=== PATIENT | female | born 1950 | race Caucasian/White ===

== ENCOUNTER → 2017-02-02 | Outpatient (CLI) | payer OTHER ==
[~2017-02-02] MED LIST: CHOL100010 PO; CITA40TA4 PO; CLX20 PO; COEN1CAP28 PO; LEVO75TA5 PO; LOSA100T2 PO; METO50TA7 PO; MULT-190 PO; MULTTAB PO; PANT40TA PO; SUMA100T16 PO; TOPI50TA24 PO; ZNF/4 PO
[2017-02-02 12:47] LABS: URINE APPEARANCE CLEAR (CLEAR); URINE BILIRUBIN NEG (NEG); URINE COLOR YELLOW; URINE EPITHELIAL CELL AUTO 20-30 /lpf (0-5); URINE NITRITE NEG (NEG); URINE SPECIFIC GRAVITY 1.032 (1.000-1.030); UROBILINOGEN NEG (NEG)
[2017-02-02 12:47] LABS: BASO % 0.5 %; BASO ABS # 0.03 K/uL (0-0.2); COMPLETE YES; HEMATOCRIT 39.2 % (37-47); IG% 0.2 %; LYMPH ABS # 1.19 K/uL (1.2-3.4); MEAN CELL VOLUME 89.7 fL (80-100); MEAN CORPUSCULAR HEMOGLOBIN 28.6 pg (25-34); MEAN CORPUSCULAR HGB CONC 31.9 g/dl (32-36); MEAN PLATELET VOLUME 9.9 fL (7.4-10.4); NEUT % 63.3 %; PLATELET COUNT 333 K/uL (130-400); RED BLOOD COUNT 4.37 M/uL (4.2-5.4); WHITE BLOOD COUNT 5.66 K/uL (4.8-10.8)
[2017-02-02 12:52] LABS: MANUAL MICROSCOPIC REQUIRED? NO; REVIEW REQ? NO
[2017-02-02 13:58] LABS: ESTIMATED AVERAGE GLUCOSE 131 mg/dl; HA1C FLAG Normal (Normal)
[2017-02-02 14:40] LABS: BLOOD UREA NITROGEN 22 mg/dl (7-18); BUN/CREATININE RATIO 22.6 (10-20); CALCIUM 9.2 mg/dl (8.5-10.1); CARBON DIOXIDE 27 mmol/L (21-32); CHLORIDE 106 mmol/L (98-107); CREATININE 0.99 mg/dl (0.60-1.20); GLUCOSE 102 mg/dl (70-99); POTASSIUM 3.8 mmol/L (3.5-5.1); SODIUM 141 mmol/L (136-145)
[2017-02-02 14:51] LABS: CHOLESTEROL 252 mg/dl (0-200); CHOLESTEROL/HDL RATIO 4.3; HDL CHOLESTEROL 58 mg/dl; LDL CHOLESTEROL CALCULATED 143 mg/dl; TRIGLYCERIDES 255 mg/dl (0-150); VERY LOW DENSITY LIPOPROT CALC 51 mg/dl
--- NOTE | 2017-02-09 12:43 | CODING QUERY MEDICAL NECESSITY ---
SUPPORTING DIAGNOSIS NEEDED A supporting diagnosis is required for the test/procedure performed on this patient in order for us to be reimbursed by the patient's insurance. Please provide a supporting diagnosis for the following test/procedure listed below next to the test name along with your signature. *If there is no additional diagnosis for this patient that would support the following test/procedure please document that below next to the test/procedure. Test(s)/Procedure(s) that require a supporting diagnosis: DOS 02/02 * Hba1c DIAGNOSIS: Provider Signature: Date: Thank you Lesli Hope Health Information Management Once completed, please kindly fax back to [phone] For questions please call [phone]
== END | disposition home or self-care (01) ==
LOC: C.LABPBG 07:27
PROVIDERS: ATTEND Internal Medicine
DX: E78.00 Pure hypercholesterolemia, unspecified (principal); R73.9 Hyperglycemia, unspecified

== ENCOUNTER → 2017-03-01 | Outpatient (CLI) | payer OTHER ==
[2017-03-01 17:46] LABS: BLOOD UREA NITROGEN 23 mg/dl (7-18); BUN/CREATININE RATIO 24.5 (10-20); CALCIUM 9.7 mg/dl (8.5-10.1); CARBON DIOXIDE 30 mmol/L (21-32); CHLORIDE 105 mmol/L (98-107); CREATININE 0.95 mg/dl (0.60-1.20); GLUCOSE 118 mg/dl (70-99); SODIUM 141 mmol/L (136-145)
== END | disposition home or self-care (01) ==
LOC: C.LAB1850 15:53
PROVIDERS: ATTEND Internal Medicine
DX: E78.00 Pure hypercholesterolemia, unspecified (principal)

== ENCOUNTER → 2017-04-22 | Outpatient (CLI) | payer OTHER ==
[~2017-04-22] MED LIST changes: -CITA40TA4 PO
== END | disposition home or self-care (01) ==
LOC: C.LAB1850 11:28
PROVIDERS: ATTEND Internal Medicine
DX: M70.60 Trochanteric bursitis, unspecified hip (principal)

== ENCOUNTER → 2017-08-25 | Outpatient (CLI) | payer OTHER ==
[~2017-08-25] MED LIST changes: +CITA40TA4 PO; -TOPI50TA24 PO
--- NOTE | 2017-08-26 07:51 | MAMMOGRAPHY REPORT ---
BILATERAL DIGITAL SCREENING MAMMOGRAM TOMOSYNTHESIS WITH CAD: 08/25/2017 CLINICAL HISTORY: Routine screening. Patient has no complaints. TECHNIQUE: Breast tomosynthesis in addition to standard 2D mammography was performed. Current study was also evaluated with a Computer Aided Detection (CAD) system. COMPARISON: Comparison is made to exams dated: 08/24/2016 mammogram, 08/21/2015 mammogram, 08/20/2014 m ammogram, 08/17/2013 mammogram, 12/09/2010 mammogram - [facility], and 05/30/2009. BREAST COMPOSITION: The tissue of both breasts is heterogeneously dense, which may obscure small mas ses. FINDINGS: No suspicious masses, calcifications, or areas of architectural distortion are noted in ei ther breast. There has been no significant interval change compared to prior exams. Scattered bilater al benign-appearing calcifications are not significantly changed. IMPRESSION: ACR BI-RADS CATEGORY 2: BENIGN There is no mammographic evidence of malignancy. A 1 year screening mammogram is recommended. The pa tient will receive written notification of the results. Approximately 10% of breast cancers are not detected with mammography. A negative mammographic report should not delay biopsy if a clinically suggestive mass is present. Mary Tyler M.D. /:08/25/2017 09:05:18 Image Assembler: Nina BUENROSTRO(Eneida)(M), [facility] letter sent: Normal 1/2 BI-RADS Code: ACR BI-RADS Category 2: Benign
== END | disposition home or self-care (01) ==
LOC: C.MAMM 08:40
PROVIDERS: ATTEND Internal Medicine
DX: Z12.31 Encounter for screening mammogram for malignant neoplasm of breast (principal)

== ENCOUNTER → 2017-11-09 | Outpatient (CLI) | payer OTHER ==
[~2017-11-09] MED LIST changes: -CLX20 PO
[2017-11-09 18:12] LABS: BASO % 0.4 %; BASO ABS # 0.02 K/uL (0-0.2); EOS % 2.1 %; EOS ABS # 0.12 K/uL (0-0.5); HEMATOCRIT 40.9 % (37-47); IG# 0.01 K/uL (0.00-0.02); LYMPH % 19.8 %; LYMPH ABS # 1.12 K/uL (1.2-3.4); MEAN CELL VOLUME 87.8 fL (80-100); MEAN CORPUSCULAR HEMOGLOBIN 27.9 pg (25-34); MEAN CORPUSCULAR HGB CONC 31.8 g/dl (32-36); MEAN PLATELET VOLUME 10.3 fL (7.4-10.4); MONO % 9.7 %; MONO ABS # 0.55 K/uL (0.11-0.59); NEUT % 67.8 %; NEUT ABS # 3.84 K/uL (1.4-6.5); PLATELET COUNT 335 K/uL (130-400); RED CELL DISTRIBUTION WIDTH CV 13.9 % (11.5-14.5); RED CELL DISTRIBUTION WIDTH SD 44.3 fL (36.4-46.3); WHITE BLOOD COUNT 5.66 K/uL (4.8-10.8)
[2017-11-09 18:35] LABS: ALT/SGPT 20 U/L (12-78); AST/SGOT 14 U/L (15-37); BLOOD UREA NITROGEN 32 mg/dl (7-18); CALCIUM 9.9 mg/dl (8.5-10.1); CARBON DIOXIDE 30 mmol/L (21-32); CHOLESTEROL 287 mg/dl (0-200); CREATININE 0.88 mg/dl (0.60-1.20); GLUCOSE 125 mg/dl (70-99); POTASSIUM 3.7 mmol/L (3.5-5.1); SODIUM 138 mmol/L (136-145)
[2017-11-09 18:45] LABS: LDL CHOLESTEROL CALCULATED 203 mg/dl
[2017-11-10 06:55] LABS: HEMOGLOBIN A1C 6.2 % (4.5-5.6)
== END | disposition home or self-care (01) ==
LOC: C.LABPBG 12:30
PROVIDERS: ATTEND Internal Medicine
DX: E78.00 Pure hypercholesterolemia, unspecified (principal)

== ENCOUNTER 2019-07-07 08:42 | Inpatient (IN) ==
--- NOTE | 2019-07-05 12:05 | Anesthesiology Consultation ---
Date of Service July 05, 2019 Assessment & Plan Chart Review Chart Review: Acceptable Risk for Surgery and Patient NOT seen in Pre Admission Testing Consults Requested none History Surgery Operation Date: 07/07/19 12:45 Proposed Procedures p L3-L4 Revision Decompression; L3-L4 Transforaminal Lumbar Interbody Fusion; Spinal Cord Monitoring - Clarke Gould DO Height/Weight Height: 5 ft 2 in Weight: 72.575 kg Allergies Allergy/AdvReac Type Severity Reaction Status Date / Time Penicillins Allergy Severe throat Verified 07/05/19 10:27 pruritis carbamazepine Allergy Intermediate per PCP Verified 07/05/19 10:28 note chlorhexidine Allergy Intermediate ITCHING, Verified 07/05/19 10:27 TINGLING latex Allergy Intermediate ITCHING Verified 07/05/19 10:27 ERYTHEMA soap Allergy Intermediate ITCHING Verified 07/05/19 10:27 "DIAL SOAP" soy Allergy Intermediate INDIGESTION Verified 07/05/19 10:27 Sulfa (Sulfonamide Allergy Intermediate ITCHING OF Verified 07/05/19 10:28 Antibiotics) THROAT Iodinated Contrast Media Allergy Mild headache, Verified 07/05/19 10:28 n/v, hives, rash iodine Allergy Mild headache, Verified 07/05/19 10:28 n/v, hives, rash with IV dye chlorpromazine Allergy Unknown Unknown Verified 07/05/19 10:27 fluoxetine Allergy Unknown per PCP Verified 07/05/19 10:27 note propoxyphene Allergy Unknown per PCP Verified 07/05/19 10:27 record aspirin AdvReac Intermediate 'hypersensitivity' Verified 07/05/19 10:28 per pt BURNING OF STOMACH gabapentin AdvReac Intermediate ATAXIA Verified 07/05/19 10:27 ibuprofen AdvReac Intermediate STOMACH Verified 07/05/19 10:27 BURNING ketorolac AdvReac Intermediate BLEEDING Verified 07/05/19 10:27 codeine AdvReac Mild n/v, Verified 07/05/19 10:28 headache doxycycline AdvReac Mild NAUSEA Verified 07/05/19 10:28 Egg Derived AdvReac Mild NAUSEA Verified 07/05/19 10:28 fentanyl AdvReac Mild NAUSEA Verified 07/05/19 10:28 FROM PATCH morphine AdvReac Mild n/v,headach Verified 07/05/19 10:28 e thiopental AdvReac Mild n/v Verified 07/05/19 10:28 (severe), headache Medications Home Medications Medication Instructions Recorded Confirmed Last Taken cholecalciferol (vitamin D3) 5,000 5,000 units PO DAILY 09/19/18 07/05/19 05/21/19 09:00 unit capsule coQ10 (ubiquinol) 200 mg PO QAM 05/16/19 07/05/19 05/21/19 09:00 metoprolol succinate 100 mg PO HS 05/16/19 07/05/19 05/21/19 22:00 omeprazole 20 mg capsule,delayed 20 mg PO BID #90 cap 05/18/19 07/05/19 05/21/19 04:00 release acetaminophen ER 650 mg 650 mg PO UD PRN tab 05/22/19 07/05/19 Unknown tablet,extended release hydrocodone-acetaminophen 1 tab PO Q8H PRN #20 tab 05/22/19 07/05/19 Unknown multivitamin 1 tab PO DAILY 05/22/19 07/05/19 Unknown ondansetron 4 mg disintegrating 4 mg PO Q6H PRN #30 tab 05/22/19 07/05/19 Unknown tablet sumatriptan 100 mg tablet 100 mg PO .COMPLEX PRN tab 05/22/19 07/05/19 Unknown tizanidine 4 mg tablet See Rx Instructions PO DAILY tab 05/22/19 07/05/19 Unknown vitamins A,C,H-[id number]-fbenwp 1 cap PO DAILY 05/22/19 07/05/19 Unknown tramadol 50 mg tablet 50 mg PO Q6H PRN #120 tab 05/24/19 07/05/19 Unknown citalopram 40 mg tablet 40 mg PO HS #90 tab 06/12/19 07/05/19 Unknown levothyroxine 75 mcg tablet 75 mcg PO QAM #90 tab 06/12/19 07/05/19 Unknown losartan-hydrochlorothiazide 1 tab PO QAM 07/05/19 07/05/19 Unknown Past Medical History Medical History Hyperlipidemia HTN (hypertension) Mitral valve prolapse SVT (supraventricular tachycardia) (Resolved) Anxiety Cervical spondylolysis Degenerative disc disease Depression Fibromyalgia GERD (gastroesophageal reflux disease) Gastritis Hypothyroidism Legally blind BEST'S DISEASE Migraine Osteoarthritis Peripheral neuropathy Prediabetes Temporomandibular joint disorder Vitreous detachment of right eye Past Family History Family History Father Family history of diabetes mellitus Brother Family history of diabetes mellitus Uncle Family history of esophageal cancer Past Surgical History Surgical History H/O tubal ligation (Acute) Family history of reaction to anesthesia BROTHER-EXTREME DIFFICULTY WAKING UP H/O hysterectomy with oophorectomy History of abdominoplasty History of bladder surgery History of cardiac cath OVER 10 YEARS AGO AT [place] History of carpal tunnel release RT/LEFT History of cataract surgery RT/LEFT History of section History of cholecystectomy History of colonoscopy History of dilatation and curettage History of esophagogastroduodenoscopy (EGD) History of laminectomy LUMBAR History of surgery on arm RT ULNAR NERVE RELEASE History of tonsillectomy and adenoidectomy History of tooth extraction History of total knee replacement RT/LEFT Nausea and vomiting after administration of anesthetic agent Social History Smoking Status: Never smoker Do You Dip or Chew Tobacco: No Hx Alcohol Use: Yes Alcohol type: wine alcohol intake frequency: holidays/special occasions only Hx Substance Use: No substance use type: does not use Testing Laboratory Results Laboratory Tests 04/18/19 04/18/19 05/16/19 09:07 09:07 12:07 WBC 9.37 Hgb 11.6 L Hct 35.7 L Plt Count 308 Sodium 139 Potassium 4.5 Chloride 104 Carbon Dioxide 29 BUN 30 H Creatinine 1.17 Glucose 96 Hemoglobin A1c 6.9 H TSH 2.280 Electrocardiogram Date: 05/16/19 Findings: + NSR @ (68) When compared with ECG of 04/22/16, Ventricular rate has decreased by 37bpm Nonspecific T wave abnormality no longer evident in inferior leads Chest X-Ray Date: 05/16/19 Findings: + NAD FINDINGS: PA and lateral chest radiographs are compared to study dated 04/05/2015. The cardiomediastinal silhouette is unremarkable. Foci of linear atelectasis are noted in the left lower lung. The lungs and pleural spaces are otherwise clear. There is no pneumothorax. The skeletal structures are osteopenic. The bony thorax appears intact. Cholecystectomy clips are seen in the right upper quadrant. IMPRESSION: No active disease in the chest. Stress Test Date: 03/25/16 Type: DSE Findings: + WNL Resting EF: 55-60% Resting RWMA: + none Valvular Disease: no significant valvular disease Normal dobutamine stress echocardiogram No ECG or echocardiographic changes concerning for ischemia No chest discomfort experienced Normal segmental wall motion Mild aortic regurgitation No other significant valvular abnormalities seen Cervical Spine Date: 01/04/19 Cervical spine: Marrow signal intensity is heterogeneous. Vertebral body height and alignment are maintained throughout the cervical spine. The atlantodens articulation appears maintained noting productive degenerative change. The spinous processes appear intact. No destructive bony lesion is seen. Small anterior osteophytes are seen throughout. Intervertebral discs: Degenerative disc desiccation is seen throughout the cervical spine. There is moderate to advanced loss of height at levels between C3-C4 and C7-T1. Spinal cord: The cervical spinal cord is normal in morphology and signal intensity. C2-C3: A small posterior disc-osteophyte complex minimally effaces the ventral subarachnoid space. Predominantly facet arthropathy is of no consequence. C3-C4: A posterior disc-osteophyte complex minimally effaces the ventral cord. Uncovertebral and facet arthropathy cause mild to moderate left neural foraminal stenosis. C4-C5: A posterior disc-osteophyte complex abuts the ventral cord. Uncovertebral and facet arthropathy causes mild to moderate left neural frontal stenosis. C5-C6: A posterior disc-osteophyte complex eccentric to the right abuts the ventral cord. Uncovertebral and facet arthropathy causes severe right and minimal left neural from stenosis. C6-C7: A posterior disc-osteophyte complex effaces the ventral subarachnoid space. Predominantly uncovertebral arthropathy causes moderate right neural foraminal stenosis. C7-T1: A posterior disc-osteophyte complex abuts the ventral cord. Predominantly uncovertebral arthropathy causes mild bilateral neural foraminal stenosis. Brain parenchyma: The partially imaged brain parenchyma at the skull base is normal in appearance. Partially empty sella is incidentally noted. Soft tissues: The prevertebral and paraspinous soft tissues are normal in appearance. IMPRESSION: 1. Multilevel cervical spondylosis as detailed above. See discussion for detailed [id number] analysis. 2. The cervical spinal cord is normal in morphology and signal intensity. 3. Marrow signal intensity is heterogeneous. No destructive bony lesion is identified.
[~2019-07-07 08:42] MED LIST changes: +ACETAMINOPHEN 1000 MG/100 ML IV IV ONE; +ACETAMINOPHEN 500 MG TAB PO SCH; +CEFAZOLIN 1000MG 1,000 MG/7.5 ML SYR IV SCH; -CHOL100010 PO; -CITA40TA4 PO; +CLINDAMYCIN 600 MG/54 ML BAG IV SCH; -COEN1CAP28 PO; +GABAPENTIN 300 MG CAP PO SCH; -LEVO75TA5 PO; -LOSA100T2 PO; +LR 15ML/HR IV SCH; -METO50TA7 PO; -MULT-190 PO; -MULTTAB PO; -PANT40TA PO; -SUMA100T16 PO; -ZNF/4 PO
[2019-07-07] MEDS ORDERED: fentaNYL citrate 100 MCG/2 ML VIAL ONE ×2 (09:53→12:30)
[2019-07-07] MEDS ORDERED: MIDAZOLAM HCL 1 MG/ML 2ML VIAL ONE (09:53)
[2019-07-07] MEDS ORDERED: DEXAMETHASONE SOD INJ 4 MG/ML VIAL ONE (09:53)
[2019-07-07] MEDS ORDERED: ROCURONIUM BROMIDE 10 MG/ML 5 ML VIAL ONE ×2 (09:53→12:25)
[2019-07-07] MEDS ORDERED: LIDOCAINE HCL 2% 2 ML VIAL/AMP(20MG/ML) INFIL ONE (09:53)
[2019-07-07] MEDS ORDERED: ONDANSETRON INJ 2 MG/ML 2 ML VIAL ONE (09:53)
[2019-07-07] MEDS ORDERED: PROPOFOL IV EMULSION 10 MG/ML 20 ML VIAL IV ONE (09:53)
--- NOTE | 2019-07-07 10:04 | Anesthesiology Consultation ---
Date of Service July 07, 2019 Assessment & Plan ASA ASA3 Proposed Anesthesia Anesthesia Type: General Risk / Benefits Reviewed With: PT / POA / Parent / Guardian, Accepts Plan and Informed Consent Obtained Additional Comments: original chart review was on wrong visit number. I reviewed both History Surgery Operation Date: 07/07/19 10:25 Proposed Procedures p L3-L4 Revision Decompression; L3-L4 Transforaminal Lumbar Interbody Fusion; Spinal Cord Monitoring - Clarke Gould, Height/Weight Height: 5 ft 2 in Weight: 71.8 kg Allergies Allergy/AdvReac Type Severity Reaction Status Date / Time Penicillins Allergy Severe throat Verified 07/07/19 09:16 pruritis carbamazepine Allergy Intermediate per PCP Verified 07/07/19 09:16 note chlorhexidine Allergy Intermediate ITCHING, Verified 07/07/19 09:16 TINGLING latex Allergy Intermediate ITCHING Verified 07/07/19 09:16 ERYTHEMA soap Allergy Intermediate ITCHING Verified 07/07/19 09:16 "DIAL SOAP" soy Allergy Intermediate INDIGESTION Verified 07/07/19 09:16 Sulfa (Sulfonamide Allergy Intermediate ITCHING OF Verified 07/07/19 09:16 Antibiotics) THROAT Iodinated Contrast Media Allergy Mild headache, Verified 07/07/19 09:16 n/v, hives, rash iodine Allergy Mild headache, Verified 07/07/19 09:16 n/v, hives, rash with IV dye chlorpromazine Allergy Unknown Unknown Verified 07/07/19 09:16 fluoxetine Allergy Unknown per PCP Verified 07/07/19 09:16 note propoxyphene Allergy Unknown per PCP Verified 07/07/19 09:16 record aspirin AdvReac Intermediate 'hypersensitivity' Verified 07/07/19 09:16 per pt BURNING OF STOMACH gabapentin AdvReac Intermediate ATAXIA Verified 07/07/19 09:16 ibuprofen AdvReac Intermediate STOMACH Verified 07/07/19 09:16 BURNING ketorolac AdvReac Intermediate BLEEDING Verified 07/07/19 09:16 codeine AdvReac Mild n/v, Verified 07/07/19 09:16 headache doxycycline AdvReac Mild NAUSEA Verified 07/07/19 09:16 Egg Derived AdvReac Mild NAUSEA Verified 07/07/19 09:16 fentanyl AdvReac Mild NAUSEA Verified 07/07/19 09:16 FROM PATCH morphine AdvReac Mild n/v,headach Verified 07/07/19 09:16 e thiopental AdvReac Mild n/v Verified 07/07/19 09:16 (severe), headache Medications Home Medications Medication Instructions Recorded Confirmed Last Taken cholecalciferol (vitamin D3) 5,000 5,000 units PO DAILY 09/19/18 07/07/19 07/06/19 09:00 unit capsule coQ10 (ubiquinol) 200 mg PO QAM 05/16/19 07/07/19 07/06/19 09:00 metoprolol succinate 100 mg PO HS 05/16/19 07/07/19 07/06/19 21:00 omeprazole 20 mg capsule,delayed 20 mg PO BID #90 cap 05/18/19 07/07/19 07/07/19 06:00 release acetaminophen ER 650 mg 650 mg PO UD PRN tab 05/22/19 07/07/19 07/07/19 04:00 tablet,extended release hydrocodone-acetaminophen 1 tab PO Q8H PRN #20 tab 05/22/19 07/07/19 3 Weeks Ago ~06/16/19 multivitamin 1 tab PO DAILY 05/22/19 07/07/19 07/06/19 09:00 ondansetron 4 mg disintegrating 4 mg PO Q6H PRN #30 tab 05/22/19 07/07/19 3 Months Ago tablet ~04/06/19 sumatriptan 100 mg tablet 100 mg PO .COMPLEX PRN tab 05/22/19 07/07/19 07/06/19 14:00 tizanidine 4 mg tablet See Rx Instructions PO DAILY tab 05/22/19 07/07/19 07/06/19 22:00 vitamins A,C,F-vufa-blvxdp 1 cap PO DAILY 05/22/19 07/07/19 07/06/19 09:00 tramadol 50 mg tablet 50 mg PO Q6H PRN #120 tab 05/24/19 07/07/19 07/07/19 04:00 citalopram 40 mg tablet 40 mg PO HS #90 tab 06/12/19 07/07/19 07/06/19 22:00 levothyroxine 75 mcg tablet 75 mcg PO QAM #90 tab 06/12/19 07/07/19 07/07/19 06:00 losartan-hydrochlorothiazide 1 tab PO QAM 07/05/19 07/07/19 07/06/19 09:00 Active Medications Generic Name Dose Route Start Last Admin Trade Name Kusum PRN Reason Stop Dose Admin Acetaminophen 1,000 mg 07/07/19 06:00 07/07/19 09:29 Tylenol PO 07/07/19 18:00 1,000 mg PREOP FRANCO Administration Lactated Ringer's 1,000 mls @ 15 mls/hr 07/07/19 06:00 07/07/19 09:26 Lr IV 07/08/19 05:59 15 mls/hr .Q24H FRANCO Administration NPO Date Last Intake of Fluids: 07/06/19 Time Last Intake of Fluids: 21:00 Date Last Intake of Solids: 07/06/19 Time Last Intake of Solids: 21:00 Past Medical History Medical History Hyperlipidemia HTN (hypertension) Mitral valve prolapse Vitreous detachment of right eye SVT (supraventricular tachycardia) (Resolved) Anxiety Cervical spondylolysis Degenerative disc disease Depression Fibromyalgia GERD (gastroesophageal reflux disease) Gastritis Hypothyroidism Legally blind BEST'S DISEASE Migraine Osteoarthritis Peripheral neuropathy Prediabetes Temporomandibular joint disorder Exercise / Class Metabolic Activity II 4-5 Yardwork/Stairs/Walk up hill Past Family History Family History Father Family history of diabetes mellitus Brother Family history of diabetes mellitus Uncle Family history of esophageal cancer Past Surgical History Surgical History History of laminectomy LUMBAR H/O tubal ligation (Acute) Family history of reaction to anesthesia BROTHER-EXTREME DIFFICULTY WAKING UP H/O hysterectomy with oophorectomy History of abdominoplasty History of bladder surgery History of cardiac cath OVER 10 YEARS AGO AT [facility] History of carpal tunnel release RT/LEFT History of cataract surgery RT/LEFT History of section History of cholecystectomy History of colonoscopy History of dilatation and curettage History of esophagogastroduodenoscopy (EGD) History of surgery on arm RT ULNAR NERVE RELEASE History of tonsillectomy and adenoidectomy History of tooth extraction History of total knee replacement RT/LEFT Nausea and vomiting after administration of anesthetic agent Past Anesthesia History No Hx of Anesthesia Complications and No Family Hx of Anesthesia Complications History of PONV No Hx of PONV and No Hx of Motion Sickness Social History Smoking Status: Never smoker Do You Dip or Chew Tobacco: No Hx Alcohol Use: Yes Alcohol type: wine alcohol intake frequency: holidays/special occasions only Hx Substance Use: No substance use type: does not use Review of Systems Cardiovascular: no chest pain and no dyspnea on exertion Physical Exam Vital Signs Last Vital Signs Temp 37.1 C 07/07/19 09:23 Pulse 70 07/07/19 09:23 Resp 20 07/07/19 09:23 BP 147/85 H 07/07/19 09:23 Pulse Ox 100 07/07/19 09:23 ENMT Mouth: no TMJ abnormality and no dentition abnormality Thyromental Distance: > or= 3.5 Finger Breadths Mallampati Class: II Neck neck extension not limited Respiratory normal respiratory effort; no respiratory distress Auscultation: lungs clear to auscultation bilaterally Cardiovascular Rate/Rhythm: regular rate and regular rhythm
--- NOTE | 2019-07-07 10:10 | History & Physical Bridge Note ---
Date of Service July 07, 2019 History & Physical Bridge Note I have examined the patient, reviewed the History & Physical and in the interval since the performance of the History & Physical I have noted the following changes of clinical significance: no changes noted
--- NOTE | 2019-07-07 10:11 | History & Physical Report ---
Date of Service July 07, 2019 Assessment & Plan (1) Lumbar disc herniation with radiculopathy: Revision decompression and fusion L3-4 Present on Admission?: Yes History of Present Illness Chief Complaint: Back and leg pain Primary Care Provider: Yehuda Mejia MD This is a 60-year-old female who presents with chronic persistent back and leg pain. After failing extensive course of nonoperative care like to undergo the above-mentioned procedure. Allergies Allergy/AdvReac Type Severity Reaction Status Date / Time Penicillins Allergy Severe throat Verified 07/07/19 09:16 pruritis carbamazepine Allergy Intermediate per PCP Verified 07/07/19 09:16 note chlorhexidine Allergy Intermediate ITCHING, Verified 07/07/19 09:16 TINGLING latex Allergy Intermediate ITCHING Verified 07/07/19 09:16 ERYTHEMA soap Allergy Intermediate ITCHING Verified 07/07/19 09:16 "DIAL SOAP" soy Allergy Intermediate INDIGESTION Verified 07/07/19 09:16 Sulfa (Sulfonamide Allergy Intermediate ITCHING OF Verified 07/07/19 09:16 Antibiotics) THROAT Iodinated Contrast Media Allergy Mild headache, Verified 07/07/19 09:16 n/v, hives, rash iodine Allergy Mild headache, Verified 07/07/19 09:16 n/v, hives, rash with IV dye chlorpromazine Allergy Unknown Unknown Verified 07/07/19 09:16 fluoxetine Allergy Unknown per PCP Verified 07/07/19 09:16 note propoxyphene Allergy Unknown per PCP Verified 07/07/19 09:16 record aspirin AdvReac Intermediate 'hypersensitivity' Verified 07/07/19 09:16 per pt BURNING OF STOMACH gabapentin AdvReac Intermediate ATAXIA Verified 07/07/19 09:16 ibuprofen AdvReac Intermediate STOMACH Verified 07/07/19 09:16 BURNING ketorolac AdvReac Intermediate BLEEDING Verified 07/07/19 09:16 codeine AdvReac Mild n/v, Verified 07/07/19 09:16 headache doxycycline AdvReac Mild NAUSEA Verified 07/07/19 09:16 Egg Derived AdvReac Mild NAUSEA Verified 07/07/19 09:16 fentanyl AdvReac Mild NAUSEA Verified 07/07/19 09:16 FROM PATCH morphine AdvReac Mild n/v,headach Verified 07/07/19 09:16 e thiopental AdvReac Mild n/v Verified 07/07/19 09:16 (severe), headache Home Medications Home Medications Medication Instructions Recorded Confirmed Type cholecalciferol (vitamin D3) 5,000 5,000 units PO DAILY 09/19/18 07/07/19 History unit capsule coQ10 (ubiquinol) 200 mg PO QAM 05/16/19 07/07/19 History metoprolol succinate 100 mg PO HS 05/16/19 07/07/19 History omeprazole 20 mg capsule,delayed 20 mg PO BID #90 cap 05/18/19 07/07/19 Rx release acetaminophen ER 650 mg 650 mg PO UD PRN tab 05/22/19 07/07/19 History tablet,extended release hydrocodone-acetaminophen 1 tab PO Q8H PRN #20 tab 05/22/19 07/07/19 Rx multivitamin 1 tab PO DAILY 05/22/19 07/07/19 History ondansetron 4 mg disintegrating 4 mg PO Q6H PRN #30 tab 05/22/19 07/07/19 History tablet sumatriptan 100 mg tablet 100 mg PO .COMPLEX PRN tab 05/22/19 07/07/19 History tizanidine 4 mg tablet See Rx Instructions PO DAILY tab 05/22/19 07/07/19 History vitamins A,C,B-[id number]-[id number] 1 cap PO DAILY 05/22/19 07/07/19 History tramadol 50 mg tablet 50 mg PO Q6H PRN #120 tab 05/24/19 07/07/19 Rx citalopram 40 mg tablet 40 mg PO HS #90 tab 06/12/19 07/07/19 Rx levothyroxine 75 mcg tablet 75 mcg PO QAM #90 tab 06/12/19 07/07/19 Rx losartan-hydrochlorothiazide 1 tab PO QAM 07/05/19 07/07/19 History Past Med/Surg History Medical History Hyperlipidemia HTN (hypertension) Mitral valve prolapse Vitreous detachment of right eye SVT (supraventricular tachycardia) (Resolved) Anxiety Cervical spondylolysis Degenerative disc disease Depression Fibromyalgia GERD (gastroesophageal reflux disease) Gastritis Hypothyroidism Legally blind BEST'S DISEASE Migraine Osteoarthritis Peripheral neuropathy Prediabetes Temporomandibular joint disorder Surgical History History of laminectomy LUMBAR H/O tubal ligation (Acute) Family history of reaction to anesthesia BROTHER-EXTREME DIFFICULTY WAKING UP H/O hysterectomy with oophorectomy History of abdominoplasty History of bladder surgery History of cardiac cath OVER 10 YEARS AGO AT [facility] History of carpal tunnel release RT/LEFT History of cataract surgery RT/LEFT History of section History of cholecystectomy History of colonoscopy History of dilatation and curettage History of esophagogastroduodenoscopy (EGD) History of surgery on arm RT ULNAR NERVE RELEASE History of tonsillectomy and adenoidectomy History of tooth extraction History of total knee replacement RT/LEFT Nausea and vomiting after administration of anesthetic agent Family History Father Family history of diabetes mellitus Brother Family history of diabetes mellitus Uncle Family history of esophageal cancer Social History Preferred Language: Hebrew Communication Ability: Impaired Communication Ability Comment: PT LEGALLY BLIND Visual Impairment: Blindness Hearing Ability: Normal Inventory Technician Required: No Beliefs That Will Affect Care: None marital status: Current Living Situation: Alone current occupational status: retired Other Information That Helps Us Care for You: No Feels Safe at Home: Yes Safety Concerns: Feels Safe At This Time Smoking Status: Never smoker Do You Dip or Chew Tobacco: No ; Second Hand E xposure: Yes (IN THE PAST) ; Tobacco Cessation Education Requested by Patient: No Hx Alcohol Use: Yes Alcohol type: wine Hx Substance Use: No Physical Exam Physical Exam: Patient is alert and oriented neurologically intact. Results & Data Vital Signs (Past 12 Hours) Vital Signs Temp Pulse Resp BP Pulse Ox 07/07/19 09:23 37.1 C 70 20 147/85 H 100
[2019-07-07] MEDS ORDERED: BUPIVACAINE/EPINEPHRINE 0.5% MPF 1:200,000 30 ML VIAL ONE (10:34)
[2019-07-07] MEDS ORDERED: BACITRACIN INJ 50,000 UNIT VIAL ONE (10:35)
[2019-07-07] MEDS ORDERED: ePHEDrine sulfate 50 MG/ML AMP IV PRN (10:38)
[2019-07-07] MEDS ORDERED: ATROPINE SULFATE 0.1 MG/ML 10ML SYR IV PRN (10:38)
[2019-07-07] MEDS ORDERED: ONDANSETRON INJ 2 MG/ML 2 ML VIAL IV PRN ×2 (10:38→14:07)
[2019-07-07] MEDS ORDERED: KETAMINE HCL INJ 50 MG/ML 10 ML VIAL ONE (11:19)
[2019-07-07] MEDS ORDERED: ePHEDrine sulfate 50 MG/ML SYR ONE (11:32)
[2019-07-07] MEDS ORDERED: FLOSEAL HEMOSTATIC MATRIX 10ML TOP ONE (12:14)
[2019-07-07] MEDS ORDERED: NEOSTIGMINE METHYLSULFATE 1 MG/ML 10ML VIAL ONE (12:23)
[2019-07-07] MEDS ORDERED: GLYCOPYRROLATE 0.2 MG/ML VIAL ONE (12:23)
--- NOTE | 2019-07-07 12:32 | Operative Report ---
Post Operative Report Pre & Post Diagnosis Operation Date: 07/07/19 10:25 Pre-Op Diagnosis: LUMBAR INTERVERTEBRAL DISC DISPLACEMENT Post-Op Diagnosis: LUMBAR INTERVERTEBRAL DISC DISPLACEMENT Procedure Operation Date: 07/07/19 10:25 Actual Procedures #1 revision decompression with medial facetectomies and foraminotomies L3-4. #2 posterior spinal fusion L3-4. #3 placement of posterior instrumentation L3-4. #4 interbody fusion L3-4. #5 placement of peek cage 10 x 22 mm of L3-4. #6 placement of local autograft in the posterior lateral gutters per #7 placement Feese collagen sponge, mass graft in the posterior lateral gutters and ostial amp and interbody space. Surgeon Clarke Gould, Pitch Gatherer Cj Woods Estimated Blood Loss 100 Findings Consistent with Post-Op Diagnosis Specimens None Indications This is a 60-year-old female well-known to the presents with post op current leg pain. Images demonstrate evidence of beginnings of instability L3-4. Subsequently left buttock elected to undergo the above-mentioned procedure. Description of Procedure Patient was met with identified and informed consent obtained. Patient was then taken to the suite prone position the Croky table on top of the Darell frame. All bony prominences well-padded eyes inspected to ensure no external pressure placed upon the peer at this point the lumbar spine was prepped and draped in normal sterile fashion. Sharp dissection with the assistance of Bovie cautery was performed down to and exposing the lamina and transverse processes of L3 and L4 bilaterally. And then performed a revision complete laminectomy of L3 including medial facetectomies foraminotomies. There was evidence of a pars f racture on the right. After complete decompression pedicle screws were placed in L3 and L4 bilaterally with assistance of fluoroscopy the purposes dmiitry placed. By way of a trans-foraminal approach on the right complete discectomy was performed endplates curetted to subcortical bleeding bone and a 10 x 22 mm peek cage filled with ostium bone graft tapped in position. The rods were then locked in final position bilaterally. Transverse processes of L3 and L4 burred to subcortical bleeding bone. Infuse collagen sponge mass graft local autograft placed in the posterior lateral gutters. 15 round LYLE drain inserted. The incision was then closed with 1 Vicryl in the fascia 2-0 Vicryl subcutaneously and 4-0 Monocryl for final skin closure. Steri-Strip sterile dressings placed. Patient will continue PACU in a stable condition. Please note Cj Woods present throughout the entire procedure involved the patient positioning complex portions of the surgery and final skin closure. Lastly spinal cord monitoring was utilized that procedure no changes noted. I attest to the content of the Intraoperative Record and any orders documented therein. Any exceptions are noted below.
--- NOTE | 2019-07-07 12:36 | Fluoroscopy Report ---
FL lumbar spine 2-3V CLINICAL HISTORY: L3-L4 REVISION L3-L4 FUSION COMPARISON STUDY: 05/22/2019 FLUOROSCOPY TIME: 14.3 seconds NUMBER OF FLUOROSCOPIC IMAGES: 2 FINDINGS: Image intensifier support for lumbar laminectomy and fusion IMPRESSION: Image intensifier support for lumbar laminectomy and fusion The above report was generated using voice recognition software. It may contain grammatical, syntax or spelling errors. Electronically signed by: Richard Mcneal M.D. 07/07/2019 12:35 PM
[2019-07-07] MEDS ORDERED: HYDROmorphone INJ 0.5 MG/0.5 ML SYR IV PRN (12:58)
[2019-07-07] MEDS: fentaNYL citrate 100 MCG/2 ML VIAL IV PRN ×4 (13:01→13:19)
--- NOTE | 2019-07-07 13:39 | Anesthesiology Progress Note ---
Date of Service July 07, 2019 Anesthesia Post Procedure Vital Signs Vital Signs: Temp Pulse Pulse Resp BP Pulse Ox 07/07/19 13:35 36.8 C 77 21 127/61 99 07/07/19 13:25 73 12 120/61 100 07/07/19 13:15 70 14 120/67 100 07/07/19 13:05 74 20 132/65 100 07/07/19 12:55 87 13 140/73 100 07/07/19 12:49 36.8 C 94 H 15 157/74 H 100 07/07/19 09:23 37.1 C 70 20 147/85 H 100 Pain Intensity Lower Back: Pain Intensity: 3 Transfer of Care Handoff Completed per policy Notes Mental Status: alert / awake / arousable and participated in evaluation Patient Amnestic to Procedure: Yes Nausea / Vomiting: adequately controlled Pain: adequately controlled Airway Patency, RR, SpO2: stable & adequate BP & HR: stable & adequate Hydration State: stable & adequate Anesthetic Complications: no major complications apparent and Pt Satisfied with anesthetic care
[2019-07-07] MEDS ORDERED: PROMETHAZINE HCL 12.5 MG in SODIUM CHLORIDE 0.9% 50 ML IV PRN (14:07)
[2019-07-07] MEDS ORDERED: MAGNESIUM HYDROXIDE SUSP 30 ML UDC PO PRN (14:07)
[2019-07-07] MEDS ORDERED: FAMOTIDINE 20 MG TAB PO PRN (14:07)
[2019-07-07] MEDS ORDERED: DO NOT ADMINISTER PNEUMOCOCCAL VACCINE PRN (14:07)
[2019-07-07] MEDS ORDERED: DO NOT ADMINISTER FLU VACCINE PRN (14:07)
[2019-07-07] MEDS ORDERED: NON-FORMULARY MEDICATION (Acetaminophen 650 MG) PO PRN (14:07)
[2019-07-07] MEDS ORDERED: ALUMINUM/MAGNESIUM SUSP 30 ML UDC PO PRN (14:07)
[2019-07-07] MEDS ORDERED: SOD PHOSPHATE/SOD BIPHOSPHATE ENEMA 132 ML BTL PR PRN (14:07)
[2019-07-07] MEDS ORDERED: LORazepam 0.5 MG TAB PO PRN (14:07)
[2019-07-07] MEDS ORDERED: METOCLOPRAMIDE HCL INJ 5 MG/ML 2 ML VIAL IV PRN (14:07)
[2019-07-07] MEDS ORDERED: NALOXONE HCL 0.4 MG/1 ML VIAL/CARP IV PRN (14:07)
[2019-07-07] MEDS ORDERED: SUMAtriptan succinate 100 MG TAB PO PRN (14:07)
[2019-07-07] MEDS ORDERED: LORazepam 0.5 MG/1 ML VIAL IV PRN (14:07)
[2019-07-07] MEDS ORDERED: ACETAMINOPHEN 500 MG TAB PO PRN (14:07)
[2019-07-07] MEDS ORDERED: BISACODYL 10 MG SUPP PR PRN (14:07)
[2019-07-07] MEDS ORDERED: ACETAMINOPHEN 1,000 MG/100 ML VIAL IV PRN (14:07)
[2019-07-07] MEDS ORDERED: ONDANSETRON 4 MG TAB PO PRN (14:07)
[2019-07-07] MEDS: HYDROCODONE/ACETAMOPHEN 5/325MG TAB PO PRN ×2 (14:26→20:38)
[2019-07-07] MEDS: LACTATED RINGER'S 1,000 ML IV SCH (14:28)
[2019-07-07] MEDS: HYDROmorphone INJ 0.5 MG/0.5 ML SYR IV PRN (17:11)
[2019-07-07] MEDS: CLINDAMYCIN 600 MG in DEXTROSE 5% 50 ML IV SCH (17:55)
--- NOTE | 2019-07-07 17:56 | Hospitalist Progress Note ---
Date of Service July 07, 2019 Assessment & Plan (1) Post-operative state: s/p decompression and fusion monitor for acute blood loss - cbc am DVT proph, pain control per primary (2) Anxiety disorder: continue home citalopram (3) HTN (hypertension): continue metoprolol, hold losaratan-hctz until after morning labs and vitals in the morning (4) Hypothyroid: continue levothyroxine (5) GERD (gastroesophageal reflux disease): Continue ppi Supervising Physician Co-Signing Physician Notes I supervised Darlin Still NP on this patient's care. I examined the patient today independently of her. I discussed the plan of care with her with the plan being as written in her note except for any following changes/exceptions: None. Subjective Ms. Deshpande is post op today. She is having some pain at the surgical site and some mild intermittent nausea but otherwise is feeling well. 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, smoked socially for a year in the 1980s, very rare alcohol Family: father of heart disease at 59, mother of lung cancer, diabetes, stroke Review of Systems Review of Systems: All systems reviewed & are unremarkable except as noted in HPI & below Physical Exam Physical Exam: General: no distress Eyes: normal inspection, PERLL Respiratory: chest non tender, clear to auscultation, normal breath sounds, no respiratory distress, no accessory muscle use Cardiac: regular rate and rhythm, no rub or gallop, no murmur, no edema, no jvd GI/: active bowel sounds, no abd pain or tenderness, soft, non distended Extremities: normal range of motion, normal strength, non tender Neuro:oriented x 3, moves all extremities Psych: alert, normal mood and affect Skin: normal color, dry Results & Data Vital Signs (Past 12 Hours) Vital Signs Temp Pulse Pulse Resp BP Pulse Ox 07/07/19 16:54 36.8 C 81 16 124/79 95 07/07/19 16:15 36.9 C 84 16 123/71 96 07/07/19 13:55 36.7 C 74 16 115/69 100 07/07/19 13:45 76 13 131/65 99 07/07/19 13:35 36.8 C 77 21 127/61 99 07/07/19 13:25 73 12 120/61 100 07/07/19 13:15 70 14 120/67 100 07/07/19 13:05 74 20 132/65 100 07/07/19 12:55 87 13 140/73 100 07/07/19 12:49 36.8 C 94 H 15 157/74 H 100 07/07/19 09:23 37.1 C 70 20 147/85 H 100 PG Care Time/CCT Total # of Minutes Spent Total Time Spent with Patient: Total time spent is greater than 50% in coordination of care (as documented) at patient's floor/unit and/or counseling patient:
[2019-07-07] MEDS ORDERED: CEFAZOLIN 2000MG 2,000 MG/15 ML SYR IV SCH (18:00)
[2019-07-07] MEDS: METOPROLOL SUCC 50MG EXT REL TAB PO SCH (20:43)
[2019-07-07] MEDS: TIZANIDINE HCL 4 MG TABLET PO SCH (20:43)
[2019-07-07] MEDS: CITALOPRAM 40 MG TAB PO SCH (20:44)
[2019-07-07] MEDS: DOCUSATE SODIUM/SENNA 50/8.6MG TAB PO SCH (20:44)
[2019-07-07] MEDS: PANTOprazole 40 MG TAB PO SCH (20:44)
[2019-07-08] MEDS: LACTATED RINGER'S 1,000 ML IV SCH ×3 (00:09→21:07)
[2019-07-08] MEDS: HYDROmorphone INJ 0.5 MG/0.5 ML SYR IV PRN ×3 (00:21→20:53)
[2019-07-08] MEDS: CLINDAMYCIN 600 MG in DEXTROSE 5% 50 ML IV SCH (02:37)
[2019-07-08] MEDS: HYDROCODONE/ACETAMOPHEN 5/325MG TAB PO PRN ×4 (02:37→18:50)
[2019-07-08] MEDS: POLYETHYLENE (MIRALAX) 17 GM PACK PO SCH ×3 (05:30→18:55)
[2019-07-08] MEDS: LEVOTHYROXINE SODIUM 75 MCG TABLET PO SCH (05:30)
[2019-07-08] MEDS: TRAMADOL HCL 50 MG TABLET PO PRN (05:35)
[2019-07-08 06:38] LABS: Mean Corpuscular Hgb Conc 32.7 g/dL (32-36); Platelet Count 290 K/uL (130-400)
[2019-07-08 07:12] LABS: Calcium 9.1 mg/dl (8.5-10.1); Creatinine Clr Calc Pharmacy 53.7 ml/min; Est GFR (African American) 73.2; Est GFR (Non-African American) 63.1; Hemoglobin 9.8 g/dL (12.0-16.0); Immature Granulocytes # (auto) 0.03 K/uL (0.00-0.02); Immature Granulocytes % (auto) 0.3 %; Lymphocytes # (auto) 0.71 K/uL (1.2-3.4); Lymphocytes % (auto) 6.4 %; Mean Corpuscular Hemoglobin 28.4 pg (25-34); Monocytes # (auto) 0.71 K/uL (0.11-0.59); Monocytes % (auto) 6.4 %; Neutrophils # (auto) 9.63 K/uL (1.4-6.5); Neutrophils % (auto) 86.9 %; Potassium 3.6 mmol/L (3.5-5.1); RDW Coefficient of Variation 13.6 % (11.5-14.5); RDW Standard Deviation 43.5 fL (36.4-46.3); Red Blood Count 3.45 M/uL (4.2-5.4); White Blood Count 11.08 K/uL (4.8-10.8)
--- NOTE | 2019-07-08 07:53 | Orthopedic Progress Note ---
Date of Service July 08, 2019 Assessment & Plan (1) Lumbar disc herniation with radiculopathy: Patient is progressing postoperative day #1. We will continue GI DVT prophylaxis. She will be seen by physical therapy for ambulation and gait training. We will continue to monitor her LYLE output. She is likely candidate to return home postoperative day #3. Subjective Patient seen bedside in room 320 postop day #1. Patient complains of back pain at this point but the leg symptoms seem to be somewhat better. She is utilizing oxycodone for pain control. She does not have any nausea or calf pain. She denies any other numbness, tingling, or paresthesias. Physical Exam Physical Exam: On exam she is alert and oriented. Her calves are supple nontender her abdomen soft and nontender. Strength and sensation both intact. Her dressing is clean dry and intact. LYLE drains in place and is holding suction. Results & Data Vital Signs (Past 12 Hours) Vital Signs Temp Pulse Pulse Resp BP Pulse Ox 07/08/19 07:42 36.9 C 63 16 111/66 97 07/08/19 03:27 36.9 C 73 16 116/61 97 07/07/19 23:20 36.8 C 76 16 93/56 L 92 07/07/19 20:03 36.6 C 85 16 118/74 96
[2019-07-08] MEDS: MULTIVITAMIN TAB PO SCH (08:35)
[2019-07-08] MEDS: CHOLECALCIFEROL 1,000 UNITS TAB PO SCH (08:36)
[2019-07-08] MEDS: PANTOprazole 40 MG TAB PO SCH ×2 (08:36→21:02)
[2019-07-08] MEDS: TIZANIDINE HCL 4 MG TABLET PO SCH ×3 (08:37→21:03)
[2019-07-08] MEDS ORDERED: NON-FORMULARY MEDICATION (Coq10 (Ubiquinol) 200 MG) PO SCH (09:00)
[2019-07-08] MEDS ORDERED: VITAMINS A C E ZINC COPPER PO SCH (09:00)
[2019-07-08] MEDS: LOSARTAN/HCTZ 50/12.5MG TAB PO SCH (11:08)
--- NOTE | 2019-07-08 13:31 | Hospitalist Progress Note ---
Date of Service July 08, 2019 Assessment & Plan (1) Post-operative state: s/p decompression and fusion monitor for acute blood loss - hgb decreased by 2g since surgery DVT proph, pain control per primary (2) Hypotension: hold hctz-losartan Will give 2L LR at 100 mls (3) Anxiety disorder: continue home citalopram (4) HTN (hypertension): continue metoprolol, hold losaratan-hctz as above (5) Hypothyroid: continue levothyroxine (6) GERD (gastroesophageal reflux disease): Continue ppi Subjective I was called by nursing this morning concerning Ms. Deshpande's blood pressure becoming quite hypotensive. When I examined her bedside she was not particularly symptomatic, just felt fatigued, able to sit up at the side of the bed without any dizziness. It does not appear from Is & Os that she is particularly losing a lot of blood from her drain and her hgb is only mildly decreased. She otherwise has no complaints and pain is well controlled Review of Systems Review of Systems: All systems reviewed & are unremarkable except as noted in HPI & below Physical Exam Physical Exam: General: no distress Eyes: normal inspection, PERLL Respiratory: chest non tender, clear to auscultation, normal breath sounds, no respiratory distress, no accessory muscle use Cardiac: regular rate and rhythm, no rub or gallop, no murmur, no edema, no jvd GI/: active bowel sounds, no abd pain or tenderness, soft, non distended Extremities: normal range of motion, normal strength, non tender Neuro/Psych: alert and oriented x 3, normal mood and affect Skin: normal color, dry Results & Data Vital Signs (Past 12 Hours) Vital Signs Temp Pulse Resp BP BP Pulse Ox 07/08/19 12:09 66 97/59 L 07/08/19 11:05 36.7 C 72 16 67/33 L 82/43 L 93 07/08/19 07:42 36.9 C 63 16 111/66 97 07/08/19 03:27 36.9 C 73 16 116/61 97 PG Care Time/CCT Total # of Minutes Spent Total Time Spent with Patient: Total time spent is greater than 50% in coordination of care (as documented) at patient's floor/unit and/or counseling patient:
[2019-07-08] MEDS: METOPROLOL SUCC 50MG EXT REL TAB PO SCH (21:03)
[2019-07-08] MEDS: CITALOPRAM 40 MG TAB PO SCH (21:03)
[2019-07-08] MEDS: DOCUSATE SODIUM/SENNA 50/8.6MG TAB PO SCH (21:04)
[2019-07-09] MEDS: HYDROCODONE/ACETAMOPHEN 5/325MG TAB PO PRN ×4 (01:38→18:56)
[2019-07-09] MEDS ORDERED: SODIUM CHLORIDE 0.65% NA SOLN 45 ML (OCEAN) PRN (03:24)
[2019-07-09] MEDS: TRAMADOL HCL 50 MG TABLET PO PRN ×3 (04:36→21:22)
[2019-07-09] MEDS: LEVOTHYROXINE SODIUM 75 MCG TABLET PO SCH (05:42)
[2019-07-09] MEDS: MULTIVITAMIN TAB PO SCH (07:25)
[2019-07-09] MEDS: PANTOprazole 40 MG TAB PO SCH ×2 (07:26→21:14)
[2019-07-09] MEDS: CHOLECALCIFEROL 1,000 UNITS TAB PO SCH (07:26)
[2019-07-09] MEDS: TIZANIDINE HCL 4 MG TABLET PO SCH ×3 (07:26→21:15)
--- NOTE | 2019-07-09 09:09 | Orthopedic Progress Note ---
Date of Service July 09, 2019 Assessment & Plan (1) Lumbar disc herniation with radiculopathy: Patient is doing well postop day #2. Have encouraged her to continue to ambulate. She should utilize her pain medications when needed. We will continue GI DVT prophylaxis. He will likely be able to discharge her to home tomorrow. Subjective Patient is seen postop day #2. Overall she is doing better. She did have some pain yesterday but started taking her medication and although it makes her drowsy she is tolerating it well. She has no nausea. She is not having any leg pain. She denies any other numbness, tingling, paresthesias. Physical Exam Physical Exam: On exam she is alert and oriented. Her abdomen soft nontender calves supple nontender. Her dressing is clean dry and intact. Strength and sensation are grossly intact. Results & Data Vital Signs (Past 12 Hours) Vital Signs Temp Pulse Resp BP BP Pulse Ox 07/09/19 06:07 37.0 C 82 16 141/82 H 96 07/09/19 01:29 126/71 07/08/19 23:35 79 89/53 L 07/08/19 23:25 36.9 C 74 16 78/44 L 92
--- NOTE | 2019-07-09 12:46 | Hospitalist Progress Note ---
Date of Service July 09, 2019 Assessment & Plan (1) Post-operative state: s/p decompression and fusion monitor for acute blood loss - hgb decreased by 2g since surgery DVT proph, pain control per primary (2) Hypotension: resolved with 2L LR resume hctz-losartan (3) Anxiety disorder: continue home citalopram (4) HTN (hypertension): continue metoprolol, resume losaratan-hctz (5) Hypothyroid: continue levothyroxine (6) GERD (gastroesophageal reflux disease): Continue ppi Medicine will sign off at this time. Please call with any questions or concerns Subjective Ms. Deshpande is having intermittent back pain but otherwise has no complaints. Her blood pressures are no longer running hypotensive Review of Systems Review of Systems: All systems reviewed & are unremarkable except as noted in HPI & below Physical Exam Physical Exam: General: no distress Eyes: normal inspection, PERLL Respiratory: chest non tender, clear to auscultation, normal breath sounds, no respiratory distress, no accessory muscle use Cardiac: regular rate and rhythm, no rub or gallop, no murmur, no edema, no jvd GI/: active bowel sounds, no abd pain or tenderness, soft, non distended Extremities: normal range of motion, normal strength, non tender Neuro/Psych: alert and oriented x 3, normal mood and affect Skin: normal color, dry Results & Data Vital Signs (Past 12 Hours) Vital Signs Temp Pulse Resp BP Pulse Ox 07/09/19 06:07 37.0 C 82 16 141/82 H 96 07/09/19 01:29 126/71 PG Care Time/CCT Total # of Minutes Spent Total Time Spent with Patient: Total time spent is greater than 50% in coordination of care (as documented) at patient's floor/unit and/or counseling patient:
[2019-07-09] MEDS: CITALOPRAM 40 MG TAB PO SCH (21:13)
[2019-07-09] MEDS: METOPROLOL SUCC 50MG EXT REL TAB PO SCH (21:14)
[2019-07-09] MEDS: DOCUSATE SODIUM/SENNA 50/8.6MG TAB PO SCH (21:14)
[2019-07-10] MEDS: HYDROCODONE/ACETAMOPHEN 5/325MG TAB PO PRN ×3 (00:48→11:25)
[2019-07-10] MEDS: LEVOTHYROXINE SODIUM 75 MCG TABLET PO SCH (06:07)
[2019-07-10] MEDS: CHOLECALCIFEROL 1,000 UNITS TAB PO SCH (07:42)
[2019-07-10] MEDS: LOSARTAN/HCTZ 50/12.5MG TAB PO SCH (07:42)
[2019-07-10] MEDS: MULTIVITAMIN TAB PO SCH (07:42)
[2019-07-10] MEDS: TIZANIDINE HCL 4 MG TABLET PO SCH ×2 (07:43→11:12)
[2019-07-10] MEDS: PANTOprazole 40 MG TAB PO SCH (08:35)
--- NOTE | 2019-07-10 09:55 | Discharge Summary ---
Date of Service July 10, 2019 Admission HPI Per Admitting Provider This is a 60-year-old female who presents with chronic persistent back and leg pain. After failing extensive course of nonoperative care like to undergo the above-mentioned procedure. Principal Diagnosis Lumbar spinal stenosis with radiculopathy Discharge Data Allergies Allergy/AdvReac Type Severity Reaction Status Date / Time Penicillins Allergy Severe throat Verified 07/07/19 09:16 pruritis carbamazepine Allergy Intermediate per PCP Verified 07/07/19 09:16 note chlorhexidine Allergy Intermediate ITCHING, Verified 07/07/19 09:16 TINGLING latex Allergy Intermediate ITCHING Verified 07/07/19 09:16 ERYTHEMA soap Allergy Intermediate ITCHING Verified 07/07/19 09:16 "DIAL SOAP" soy Allergy Intermediate INDIGESTION Verified 07/07/19 09:16 Sulfa (Sulfonamide Allergy Intermediate ITCHING OF Verified 07/07/19 09:16 Antibiotics) THROAT Iodinated Contrast Media Allergy Mild headache, Verified 07/07/19 09:16 n/v, hives, rash iodine Allergy Mild headache, Verified 07/07/19 09:16 n/v, hives, rash with IV dye chlorpromazine Allergy Unknown Unknown Verified 07/07/19 09:16 fluoxetine Allergy Unknown per PCP Verified 07/07/19 09:16 note propoxyphene Allergy Unknown per PCP Verified 07/07/19 09:16 record aspirin AdvReac Intermediate 'hypersensitivity' Verified 07/07/19 09:16 per pt BURNING OF STOMACH gabapentin AdvReac Intermediate ATAXIA Verified 07/07/19 09:16 ibuprofen AdvReac Intermediate STOMACH Verified 07/07/19 09:16 BURNING ketorolac AdvReac Intermediate BLEEDING Verified 07/07/19 09:16 codeine AdvReac Mild n/v, Verified 07/07/19 09:16 headache doxycycline AdvReac Mild NAUSEA Verified 07/07/19 09:16 Egg Derived AdvReac Mild NAUSEA Verified 07/07/19 09:16 fentanyl AdvReac Mild NAUSEA Verified 07/07/19 09:16 FROM PATCH morphine AdvReac Mild n/v,headach Verified 07/07/19 09:16 e thiopental AdvReac Mild n/v Verified 07/07/19 09:16 (severe), headache Consultations 07/07/19 14:07 Consult Case Management - Discharge Planning Routine Consult Hospitalist Routine Procedures Performed Operation Date: 07/07/19 10:25 Actual Procedures p L3-L4 Revision Decompression; L3-L4 Transforaminal Lumbar Interbody Fusion; Spinal Cord Monitoring, Use of Bone Morphogenic Protein(Not Applicable) - Clarke Gould DO Ordered Studies 07/07/19 10:25 FL fluoroscopy <1hr Routine FL lumbar spine 2-3V Routine Hospital Course (1) Lumbar disc herniation with radiculopathy: Patient with lumbar decompression fusion tolerated as well as taken orthopedic for postoperative. Postop day and when she is up and ambulating progressed to postop day 2. LYLE drain decreased appropriately. Neurologically she is intact. Subsequent discharge home. Discharge orders instructions from the chart for further review. Total Time Total Time Spent Total Time Spent (In Minutes): 20 minutes Discharge Plan Discharge Items Patient Disposition: Home - Self-Care Reason For Visit: LUMBAR INTERVERTEBRAL DISC DISPLACEMENT Discharge Diagnosis: Lumbar spinal stenosis with neurogenic claudication Activity: Per Instructions section Non-emergency contact: Primary Care Provider Call non-emergency contact if: you have any medication questions Follow-up/Referrals: Yehuda Mejia MD [Primary Care Provider] - Diet: Regular Addtl Attending Provider Instructions: ACTIVITY RECOMMENDATIONS: SELF CARE INSTRUCTIONS AFTER THORACIC/LUMBAR FUSIONS 1. You may walk to your tolerance. It is good exercise for your legs and back. Expect some back and intermittent leg aches and pains. 2. You may perform "counter-top" level activities (make a sandwich, [place] with a project, etc.). 3. No bending or lifting of more than 10 pounds or back twisting of any nature (roll like a log when turning in bed). 4. You may ride in a car for 20-30 minutes at a time. No driving until after your first visit with your doctor. 5. Frequent changes of position and restricting sitting to 30 minutes at a time will help limit the amount of back spasms and stiffness you may experience. 6. You may discontinue the use of ambulatory aids (cane, crutches, etc.) once your strength and confidence allow. 7. You may shaving machine operator the shower and let water strike your incision when you arrive home at least once daily. Do not take a tub bath, sit in a hot tub or go into a swimming pool until after your first recheck in the office. SPECIAL CARE INSTRUCTIONS: VERY IMPORTANT TO READ AND REVIEW A. Your surgical incision has been closed with a cosmetic suture under the skin that will dissolve in about 6 weeks. In 14 days, you can use a pair of clean scissors and cut the suture that is left outside of the skin at the ends of your incision. 1. The small skin tapes can be removed 7 days after surgery if they have not fallen off by that point. 2. You may keep the wound open to air as much as possible to promote healing after post-op day number 5 unless told otherwise by your doctor. 3. If you think the wound looks like it is becoming infected (redness or worsening drainage) and/or you are experiencing fever, chill or worsening back pain and muscle spasms, contact the office so that we may evaluate you as soon as possible. B. Complications are uncommon, but please contact us if you have any signs or symptoms of: 1. wound infection (fever higher than 102.5 degrees F, redness, separation of wound, drainage, or increasing pain from the incision) 2. blood clots in legs (pain, swelling, redness and warmth in legs) 3. urinary tract infection (fever higher than 102.5 degrees F, burning upon urination or increased frequency of urination) 4. nerve problems (inability to walk on your toes or heels, numbness, loss of bowel or bladder control) 5. any other symptoms that concern you C. Please call the office at if you have any concerns or ques tions about your operation or recovery. D. No smoking! Smoking drastically decreases the chance of a solid fusion. E. Do not take any anti-inflammatory medications (Indocin, Advil, Motrin, Aspirin, Naprosyn, etc.) as these may inhibit the chance of a solid fusion. Tylenol is okay to take for pain. MANAGING PAIN AFTER SPINAL SURGERY 1. Narcotic medication is intended for short-term use and will be provided for surgical pain. Surgical pain usually lasts for a period of 4-6 weeks. Narcotic medication includes Percocet, Vicodin, Darvocet, Tylenol #3 or Lortab. 2. Longer-term pain is more appropriately treated with non-narcotic medication such as Tylenol ES. 3. Muscle spasm is not appropriately treated with narcotics. Muscle relaxers such as Soma, Flexeril or Skelaxin can be used along with Tylenol ES. 4. Remember that we all live with some "aches and pains". This is not unusual or uncommon after an injury or as we get older. a. Back pain is expected and may include muscle spasms for 4 to 6 weeks after surgery. The pain should gradually improve. If the pain worsens for no apparent reason, please contact the office. b. Intermittent leg pain may also be experienced and should not be concerned about unless it worsens for no apparent reason. If so, please contact the office. 5. We will provide appropriate medication within the normal guidelines of their prescribed use. We will also be very cautious and aware of potential abuse and extended duration of patients' medication needs. a. Pain medications are for your comfort and to assist with sleep and rest so that the tissue can heal. They are not provided in order to return to normal activity and should not be used through the day. To do so or worsening pain at night can result from ongoing tissue damage and development of tolerance to the prescribed medicine. 6. Please allow 2-3 days to process refills. Prescriptions will not be mailed but must be picked up at the office. FOLLOW UP VISIT: Keep your scheduled follow-up appointment. Any questions, please call the office at . Pending Studies at Discharge: No Stand-Alone Forms: [facility] Medications and AL Order Prescriptions: New hydrocodone-acetaminophen [[place]] 5-325 mg Tablet 1 tab PO Q4H PRN (Reason: Pain, Severe) Qty: 30 RF: 0 tramadol 50 mg Tablet 50 mg PO Q4H PRN (Reason: Pain, Moderate) Qty: 30 RF: 0 Continued cholecalciferol (vitamin D3) 5,000 unit capsule 5,000 units PO DAILY RF: 0 omeprazole 20 mg capsule,delayed release(DR/EC) 20 mg PO BID Qty: 90 RF: 3 tramadol 50 mg tablet 50 mg PO Q6H PRN (Reason: Pain) Qty: 120 RF: 1 multivitamin 1 tab PO DAILY RF: 0 ondansetron 4 mg tablet,disintegrating 4 mg PO Q6H PRN (Reason: nausea and vomiting) Qty: 30 RF: 0 vitamins A,C,M-wzkp-gvjnqm 1 cap PO DAILY RF: 0 sumatriptan succinate 100 mg tablet 100 mg PO .COMPLEX PRN (Reason: Migraine Headache) RF: 0 acetaminophen 650 mg tablet extended release 650 mg PO UD PRN (Reason: Pain) RF: 0 levothyroxine 75 mcg tablet 75 mcg PO QAM Qty: 90 RF: 3 citalopram 40 mg tablet 40 mg PO HS Qty: 90 RF: 3 losartan-hydrochlorothiazide 100-25 mg tablet 1 tab PO QAM RF: 0 metoprolol succinate 100 mg Tablet Extended Release 24 Hr 100 mg PO HS RF: 0 coQ10 (ubiquinol) 200 mg Capsule 200 mg PO QAM RF: 0 hydrocodone-acetaminophen 5-325 mg tablet 1 tab PO Q8H PRN (Reason: pain) Qty: 20 RF: 0 tizanidine 4 mg tablet See Rx Instructions PO DAILY Qty: 0 RF: 0 Discharge Orders: Discharge Order (Routine); Ordered 07/10/19 Ordered By: Clarke Gould Admission Data Admit Date/Time: 07/07/19 12:36 Attending Provider: Clarke Gould Admit Provider: Clarke Gould Primary Care Provider: Yehuda Mejia Other Providers: Kristian Galvan Other Interventions: Discharge Summary Assessment (RN) Last Done: 07/10/19 08:40
== END 2019-07-10 12:59 | disposition home or self-care (01) | DRG 455 ==
LOC: ASU 08:42 → 3E 12:36
DX: K21.9 Gastro-esophageal reflux disease without esophagitis; E03.9 Hypothyroidism, unspecified; I10 Essential (primary) hypertension; I95.9 Hypotension, unspecified; F41.9 Anxiety disorder, unspecified; Z79.899 Other long term (current) drug therapy; M48.061 Spinal stenosis, lumbar region without neurogenic claudication; M51.16 Intervertebral disc disorders with radiculopathy, lumbar region

== ENCOUNTER 2023-05-31 08:29 | Inpatient (IN) ==
--- NOTE | 2023-04-16 10:03 | PAT Medication Instructions ---
Medication Instructions Date of Service April 16, 2023 Home Medications Medication Instructions Recorded levothyroxine 75 mcg tablet 75 mcg PO QAM #90 tabs 05/18/22 metoprolol succinate 100 mg 100 mg PO HS #90 tabs 08/25/22 tablet,extended release 24 hr fcqizjenam-vvtjltktsqynh-cjgzjecs 1 cap PO Q8H PRN pain #10 caps 01/29/23 50 mg-300 mg-40 mg capsule (Fioricet) methocarbamol 500 mg tablet 500 mg PO Q8H PRN back spasm #30 01/29/23 tabs blood sugar diagnostic (OneTouch #100 ea 02/22/23 Ultra Test strips) blood-glucose meter #1 ea 02/22/23 losartan 100 1 tab PO QAM #90 tabs 03/29/23 mg-hydrochlorothiazide 25 mg tablet coenzyme Q10 100 mg capsule (CoQ-10) 200 mg PO QAM levothyroxine 75 mcg tablet 75 mcg PO QAM cholecalciferol (vitamin D3) 125 mcg (5,000 unit) capsule 125 mcg PO QAM metoprolol succinate 100 mg tablet,extended release 24 hr 100 mg PO HS xqrfgxsami-pkrzewnwqjqqz-tvunuinw 50 mg-300 mg-40 mg capsule (Fioricet) 1 cap PO Q8H PRN methocarbamol 500 mg tablet 500 mg PO Q8H PRN losartan 100 mg-hydrochlorothiazide 25 mg tablet 1 tab PO QAM acetaminophen 650 mg tablet,extended release 1,350 mg PO UD PRN carboxymethylcellulose sodium 0.5 % eye drops (Refresh Tears) 1 drp ophthalmic (eye) UD PRN duloxetine 60 mg capsule,delayed release (Cymbalta) 60 mg PO HS ezetimibe 10 mg tablet (Zetia) 10 mg PO HS lutein 25 mg-zeaxanthin 5 mg capsule (Ocuvite Blue Light) 1 cap PO QAM omeprazole 20 mg capsule,delayed release 40 mg PO QAM semaglutide 0.25 mg or 0.5 mg (2 mg/3 mL) subcutaneous pen injector (Ozempic) 0.5 mg subcut WK sumatriptan succinate 50 mg tablet (Imitrex) 50 mg PO UD PRN tramadol 50 mg tablet 50 - 100 mg PO BID PRN wrzdneo-eemdav-xxmlap oil 0.12 mg-87 mg-788 mg/g topical gel 1 g topical HS Continue as directed acetaminophen 650 mg tablet,extended release 1,350 mg PO UD PRN(if needed) carboxymethylcellulose sodium 0.5 % eye drops (Refresh Tears) 1 drp ophthalmic (eye) UD PRN(if needed) sumatriptan succinate 50 mg tablet (Imitrex) 50 mg PO UD PRN(if needed) semaglutide 0.25 mg or 0.5 mg (2 mg/3 mL) subcutaneous pen injector (Ozempic) 0.5 mg subcut WK ASK your surgeon for instructions eycdloezuf-wjsoesohafyxo-ienbvoja 50 mg-300 mg-40 mg capsule (Fioricet) 1 cap PO Q8H PRN(if needed) STOP taking 2 weeks before surgery (or as soon as possible if surgery is within 2 weeks) coenzyme Q10 100 mg capsule (CoQ-10) 200 mg PO QAM lutein 25 mg-zeaxanthin 5 mg capsule (Ocuvite Blue Light) 1 cap PO QAM woiboac-cryhsl-qlpwxk oil 0.12 mg-87 mg-788 mg/g topical gel 1 g topical HS DO NOT take the morning of surgery cholecalciferol (vitamin D3) 125 mcg (5,000 unit) capsule 125 mcg PO QAM losartan 100 mg-hydrochlorothiazide 25 mg tablet 1 tab PO QAM Take morning of surgery With a small sip of water, OTHERWISE NOTHING TO EAT OR DRINK AFTER MIDNIGHT: levothyroxine 75 mcg tablet 75 mcg PO QAM methocarbamol 500 mg tablet 500 mg PO Q8H PRN(if needed) omeprazole 20 mg capsule,delayed release 40 mg PO QAM tramadol 50 mg tablet 50 - 100 mg PO BID PRN(if needed) Take evening before surgery metoprolol succinate 100 mg tablet,extended release 24 hr 100 mg PO HS methocarbamol 500 mg tablet 500 mg PO Q8H PRN(if needed) duloxetine 60 mg capsule,delayed release (Cymbalta) 60 mg PO HS ezetimibe 10 mg tablet (Zetia) 10 mg PO HS tramadol 50 mg tablet 50 - 100 mg PO BID PRN(if needed) Other Notes If you have any questions please call us at [phone] or [phone] or [phone] or [phone]
--- NOTE | 2023-04-19 11:33 | Anesthesiology Consultation ---
Date of Service April 19, 2023 Assessment & Plan (1) Encounter for pre-operative examination: - check BSG am DOS. - awaiting upcoming [place] PCP pre-op evaluation ordered by surgeon. - potential difficult intubation: cervical spondylolisthesis with limited cervic al ROM. - anesthesia complication: Pt notes hoarse voice after L3-L4 lumbar fusion 07/07/19 elective glidescope, ETT 7 at [facility] which she expresses has been perman ent and requests consideration for smaller ETT for upcoming surgery. - legal blindness: Pt states has visual reading devices at home, declines any adjustments to medication instruction paper as printed/provided. She states will be able to complete sent DOS with staff assistance. - chlorhexidine wipes were not provided at PAT visit given allergy. Chart Review Chart Review: Pending: Refer to Additional Notes / Consult section and Patient seen in Pre Admission Testing Teaching & Discussion Pre-Anesthesia Teaching/Discussion Notes: Instructed NPO after midnight before surgery, except medications with 15 cc of water. Medication instructions provided according to the PAT guidelines. History Surgery Operation Date: 06/07/23 07:45 Proposed Procedures p L4-L5 Decompression and Fusion, L3-L4 Hardware Removal, Spinal Cord Monitoring - Clarke Gould, DO Height/Weight Height: 5 ft 2 in Weight: 64.4 kg Allergies Allergy/AdvReac Type Severity Reaction Status Date / Time Iodinated Contrast Media Allergy Severe headache, Verified 04/16/23 08:35 n/v, hives, rash iodine Allergy Severe headache, Verified 04/19/23 11:44 n/v, hives, rash causing hospitalization Penicillins Allergy Severe anaphylaxis Verified 04/19/23 11:44 Sulfa (Sulfonamide Allergy Severe ITCHING OF Verified 04/19/23 11:44 Antibiotics) THROAT codeine Allergy Intermediate n/v, Verified 04/19/23 11:44 headache doxycycline Allergy Intermediate NAUSEA, Verified 04/19/23 11:44 vomiting Egg Derived Allergy Intermediate NAUSEA Verified 04/19/23 11:44 fentanyl Allergy Intermediate NAUSEA Verified 04/19/23 11:44 FROM PATCH latex Allergy Intermediate ITCHING Verified 04/19/23 11:44 ERYTHEMA morphine Allergy Intermediate n/v,headach Verified 04/19/23 11:44 e soap Allergy Intermediate ITCHING Verified 04/19/23 11:44 "DIAL SOAP" chlorhexidine Allergy Unknown ITCHING, Verified 04/16/23 08:35 TINGLING propoxyphene Allergy Unknown pt not Verified 04/16/23 08:35 sure reaction/remote hx 1970's soy Allergy Unknown INDIGESTION Verified 04/16/23 08:35 aspirin AdvReac Severe 'hypersensitivity' Verified 04/19/23 11:44 per pt BURNING OF STOMACH carbamazepine AdvReac Severe confusion, Verified 04/19/23 11:44 blurred vision fluoxetine AdvReac Severe strong Verified 04/19/23 11:44 aggression gabapentin AdvReac Severe falling Verified 04/19/23 11:44 NSAIDS (Non-Steroidal AdvReac Severe gatritis, Verified 04/19/23 11:44 Anti-Inflamma epistaxis pregabalin AdvReac Severe falling Verified 04/19/23 11:44 thiopental AdvReac Severe n/v Verified 04/19/23 11:44 (severe), headache chlorpromazine AdvReac Unknown pt unsure, Verified 04/19/23 11:44 states should not be administered ibuprofen AdvReac Unknown STOMACH Verified 04/16/23 08:35 BURNING ketorolac AdvReac Unknown BLEEDING Verified 04/16/23 08:35 baclofen Allergy Intermediate Vomiting Uncoded 04/19/23 11:44 oxycodone Allergy Mild nausea Uncoded 04/19/23 11:44 Medications Home Medications Medication Instructions Recorded Confirmed Last Taken coenzyme Q10 100 mg capsule 200 mg PO QAM 03/23/22 04/16/23 Unknown (CoQ-10) levothyroxine 75 mcg tablet 75 mcg PO QAM #90 tabs 05/18/22 04/16/23 Unknown cholecalciferol (vitamin D3) 125 125 mcg PO QAM 06/30/22 04/16/23 Unknown mcg (5,000 unit) capsule metoprolol succinate 100 mg 100 mg PO HS #90 tabs 08/25/22 04/16/23 Unknown tablet,extended release 24 hr methocarbamol 500 mg tablet 500 mg PO Q8H PRN back spasm #30 01/29/23 04/16/23 Unknown tabs blood sugar diagnostic (OneTouch #100 ea 02/22/23 03/19/23 Unknown Ultra Test strips) blood-glucose meter #1 ea 02/22/23 03/19/23 Unknown losartan 100 1 tab PO QAM #90 tabs 03/29/23 04/16/23 Unknown mg-hydrochlorothiazide 25 mg tablet acetaminophen 650 mg 1,350 mg PO UD PRN Pain 04/16/23 04/16/23 Unknown tablet,extended release carboxymethylcellulose sodium 0.5 1 drp ophthalmic (eye) UD PRN 04/16/23 04/16/23 Unknown % eye drops (Refresh Tears) refresh tears duloxetine 60 mg capsule,delayed 60 mg PO HS 04/16/23 04/16/23 Unknown release (Cymbalta) ezetimibe 10 mg tablet (Zetia) 10 mg PO HS 04/16/23 04/16/23 Unknown lutein 25 mg-zeaxanthin 5 mg 1 cap PO QAM 04/16/23 04/16/23 Unknown capsule (Ocuvite Blue Light) omeprazole 20 mg capsule,delayed 40 mg PO QAM 04/16/23 04/16/23 Unknown release sumatriptan succinate 50 mg tablet 50 mg PO UD PRN migraines 04/16/23 04/16/23 Unknown (Imitrex) duqsxct-meqari-jehgod oil 0.12 1 g topical HS 04/16/23 04/19/23 Unknown mg-87 mg-788 mg/g topical gel rkyihjukmj-raltybuqnihbb-ckyopivh 1 cap PO Q8H PRN pain #10 caps 04/21/23 Unknown 50 mg-300 mg-40 mg capsule (Fioricet) semaglutide 0.25 mg or 0.5 mg (2 0.5 mg (0.8 mL) subcut WK 90 days 04/21/23 Unknown mg/3 mL) subcutaneous pen injector #72 mL (Ozempic) tramadol 50 mg tablet 50 - 100 mg PO BID PRN Pain #90 04/21/23 Unknown tabs Past Medical History Medical History (Updated 04/19/23 @ 11:47 by Brii Mckoy PA-C) Anxiety disorder Chronic sinusitis Diabetes mellitus, type 2 NIDDM Fibromyalgia GERD (gastroesophageal reflux disease) controlled, stable per pt History of diverticulitis several yrs ago History of gastric ulcer History of gastritis History of paroxysmal supraventricular tachycardia HTN (hypertension) controlled, stable per pt Hypothyroidism Iron deficiency anemia Legally blind vestibular macular dystrophy Lumbar disc disease Migraines Mitral valve prolapse Osteopenia Sacroiliac joint pain Spondylolisthesis, cervical region limited rom Patient denies h/o stroke, seizures, heart attack, heart failure, HTN, blood clots or blood transfusions. Exercise / Class Metabolic Activity II 4-5 Yardwork/Stairs/Walk up hill (denies chest discomfort or shortness of breath with 1 FOS) Past Family History Family History Uncle Family history of esophageal cancer Mother Lung cancer Smoker Coronary heart disease Hypothyroidism Stroke Heart disease Father , age 59 Myocardial infarction, Onset Age: 59 Coronary heart disease S/P CABG x 4 Diabetes Heart disease Brother Family history of reaction to anesthesia extreme difficulty waking after anesthesia, has severe sleep apnea Coronary heart disease Hx of CABG Diabetes Hypertension Brother Coronary heart disease Aunt Breast cancer Other No family history of bleeding disorder Past Surgical History Surgical History (Updated 04/19/23 @ 11:49 by Brii Mckoy PA-C) H/O tubal ligation History of abdominoplasty History of bladder surgery History of cardiac cath blacked out...cath...OVER 10 YEARS AGO AT [place]...no stent(s) etiology for blacking out : bradycardia - no further info. History of carpal tunnel release RT/LEFT History of cataract surgery RT/LEFT History of section History of cholecystectomy History of colonoscopy most recent 07/19/2020 [place] History of dilatation and curettage History of esophagogastroduodenoscopy (EGD) History of laminectomy (2018) L3-L4 05/22/1919 Grade 1 view with glidescope #3, ETT 7. History of lumbar spinal fusion (2018) L3-L4 07/07/19 elective glidescope, ETT 7. History of surgery on arm RT ULNAR NERVE RELEASE History of tonsillectomy and adenoidectomy History of tooth extraction History of total hysterectomy with bilateral salpingo-oophorectomy (BSO) History of total knee replacement RT/LEFT 04/22/16 SAB L3-L4 1 attempt + PNB. Pt notes extended hospitalization for pain control with L TKA Nausea and vomiting after administration of anesthetic agent denies needing scop patch Past Anesthesia History No Hx of Anesthesia Complications and Other (brother-respiratory arrest intra-op felt to be related to severe sleep apnea, obesity) History of PONV History of PONV (denies needing scop patch) and Hx of Motion Sickness Social History Smoking Status: Never smoker Do You Dip or Chew Tobacco: No Hx Alcohol Use: No alcohol intake frequency: holidays/special occasions only Hx Substance Use: No substance use type: does not use Review of Systems Snoring, denies witnessed apneas. Patient denies chest pain, shortness of breath, dyspnea on exertion, fever, chills, cough, wheezing, or palpitations. Physical Exam Vital Signs Vitals BP 102/82 (Pt notes with gradual weight gain over the past 6 months and reduced stress her BP is typically in this range, denies dizziness/lightheadedness, presyncope or syncope). She was advised to contact her PCP regarding her questions on her antihypertensive dosing. P 83 TEMP 98.7 SP02 97% on RA RESP 18 Physical Limited cervical extension range of motion without pain TMD 3.5 finger breadths Mallampati Score 3 Dentition: one crown, denies chipped or loose teeth, caps, implants or bridges Lungs: normal respiratory effort. Good air movement, clear throughout to auscultation, no adventitious breath sounds Cardiac: regular rate and rhythm, no murmurs noted Carotid arteries: negative bruit bilat Lab Results Anesthesia Preop Results Results Anesthesia Widget: WBC 7.27 K/ul (4.8-10.8) 04/19/23 Hgb 12.8 g/dl (12.0-16.0) 04/19/23 Hct 37.4 % (37.0-47.0) 04/19/23 Plt 299 K/uL (130-400) 04/19/23 Na 136 mmol/L (136-145) 04/19/23 K 4.2 mmol/L (3.5-5.1) 04/19/23 Cl 101 mmol/L (98-107) 04/19/23 CO2 26 mmol/L (21-32) 04/19/23 BUN 17 mg/dl (6-23) 04/19/23 Creat 0.80 mg/dl (0.6-1.2) 04/19/23 Glucose Level 94 mg/dl (70-99(Fasting)) 04/19/23 PT 10.3 Seconds (9.0-12.0) 04/19/23 PTT 26.1 Seconds (21.0-31.0) 04/19/23 INR 0.9 (0.9-1.1) 04/19/23 HA1c 6.4 % (4.5-5.6) H 04/19/23 Urine Color Yellow 04/19/23 Urine Appearance Clear (Clear) 04/19/23 Urine pH 7.0 (4.5-7.5) 04/19/23 Urine Specific Armstrong 1.017 (1.000-1.030) 04/19/23 Urine Protein Negative (Negative) 04/19/23 Urine Glucose (UA) Negative (Negative) 04/19/23 Urine Ketones Negative (Negative) 04/19/23 Urine Blood Negative (Negative) 04/19/23 Urine Nitrite Negative (Negative) 04/19/23 Urine Bilirubin Negative (Negative) 04/19/23 Urine Urobilinogen Negative (Negative) 04/19/23 Urine Leukocyte Esterase Trace (Negative) H 04/19/23 Urine WBC (Auto) 1-5 /hpf (0-5) 04/19/23 Urine RBC (Auto) 0-4 /hpf (0-4) 04/19/23 Urine Hyaline Casts (Auto) 1-5 /lpf (0-5) 04/19/23 Urine Epithelial Cells (Auto) 5-10 /lpf (0-5) H 04/19/23 Urine Bacteria (Auto) Negative (Negative) 04/19/23 Blood Type A Positive 04/19/23 Antibody Screen NEGATIVE 04/19/23 Testing Electrocardiogram Date: 04/19/23 NSR, rate 77 bpm Cannot rule out inferior infarct, age undetermined Nonspecific ST and T wave abnormality Chest X-Ray Date: 04/19/23 No lines and tubes are seen. The cardiomediastinal silhouette is normal. The lungs are clear. No evidence of pleural effusion or pneumothorax. Partial visualization of lumbar spinal fixation hardware. IMPRESSION: No acute chest disease. COVID-19 Risk Screen Screening Information COVID-19 Screen Date: 04/19/23 Exposure 21 Days Family/Household +COVID Last 21 Days: No Exposure 10 Days Any COVID Exposure Last 10 Days: No Symptoms Last 10 Days Experienced COVID Sx Last 10 Days: No + COVID 0-90 Days COVID + in Last 0-90 Days: No
[~2023-05-31 08:29] MED LIST changes: +300mg Preop IV SCH; +600mg Preop IV SCH; -ACETAMINOPHEN 1000 MG/100 ML IV IV ONE; -CEFAZOLIN 1000MG 1,000 MG/7.5 ML SYR IV SCH; -CLINDAMYCIN 600 MG/54 ML BAG IV SCH; +LR 60ML/HR IV SCH
[2023-05-31] MEDS ORDERED: fentaNYL citrate PF 100 MCG/2 ML VIAL ONE ×2 (08:53→12:33)
[2023-05-31] MEDS ORDERED: ROCURONIUM BROMIDE 10 MG/ML 5 ML VIAL IV ONE (09:48)
[2023-05-31] MEDS ORDERED: DEXAMETHASONE SOD INJ 4 MG/ML VIAL ONE (09:48)
[2023-05-31] MEDS ORDERED: PROPOFOL IV EMULSION 10 MG/ML 20 ML VIAL IV ONE (09:48)
[2023-05-31] MEDS ORDERED: LIDOCAINE 2% 2 ML VIAL/AMP(20MG/ML) INFIL ONE (09:48)
[2023-05-31] MEDS ORDERED: ONDANSETRON INJ 2 MG/ML 2 ML VIAL ONE (09:48)
--- NOTE | 2023-05-31 10:09 | History & Physical Bridge Note ---
Date of Service May 31, 2023 History & Physical Bridge Note I have examined the patient, reviewed the History & Physical and in the interval since the performance of the History & Physical I have noted the following changes of clinical significance: no changes noted
--- NOTE | 2023-05-31 10:10 | History & Physical Report ---
Date of Service May 31, 2023 Assessment & Plan (1) Neurogenic claudication due to lumbar spinal stenosis: Plan: L4-5 decompression and fusion, L3-L4 hardware removal History of Present Illness Chief Complaint: Back and leg pain Primary Care Provider: Kassandra Castro DO This is a 72-year-old female well-known to me the presents with chronic persistent back and leg pain after failing course of nonoperative care she is here for surgical invention. Allergies Allergy/AdvReac Type Severity Reaction Status Date / Time Iodinated Contrast Media Allergy Severe headache, Verified 05/31/23 09:05 n/v, hives, rash iodine Allergy Severe headache, Verified 05/31/23 09:05 n/v, hives, rash causing hospitalization Penicillins Allergy Severe anaphylaxis Verified 05/31/23 09:05 Sulfa (Sulfonamide Allergy Severe ITCHING OF Verified 05/31/23 09:05 Antibiotics) THROAT codeine Allergy Intermediate n/v, Verified 05/31/23 09:05 headache doxycycline Allergy Intermediate NAUSEA, Verified 05/31/23 09:05 vomiting Egg Derived Allergy Intermediate NAUSEA Verified 05/31/23 09:05 latex Allergy Intermediate ITCHING Verified 05/31/23 09:05 ERYTHEMA morphine Allergy Intermediate n/v,headach Verified 05/31/23 09:05 e soap Allergy Intermediate ITCHING Verified 05/31/23 09:05 "DIAL SOAP" chlorhexidine Allergy Unknown ITCHING, Verified 05/31/23 09:05 TINGLING propoxyphene Allergy Unknown pt not Verified 05/31/23 09:05 sure reaction/remote hx 1970's soy Allergy Unknown INDIGESTION Verified 05/31/23 09:05 aspirin AdvReac Severe 'hypersensitivity' Verified 05/31/23 09:05 per pt BURNING OF STOMACH carbamazepine AdvReac Severe confusion, Verified 05/31/23 09:05 blurred vision fluoxetine AdvReac Severe strong Verified 05/31/23 09:05 aggression gabapentin AdvReac Severe falling Verified 05/31/23 09:05 NSAIDS (Non-Steroidal AdvReac Severe gatritis, Verified 05/31/23 09:05 Anti-Inflamma epistaxis pregabalin AdvReac Severe falling Verified 05/31/23 09:05 thiopental AdvReac Severe n/v Verified 05/31/23 09:05 (severe), headache fentanyl AdvReac Intermediate NAUSEA Verified 05/31/23 09:05 FROM PATCH chlorpromazine AdvReac Unknown pt unsure, Verified 05/31/23 09:05 states should not be administered ibuprofen AdvReac Unknown STOMACH Verified 05/31/23 09:05 BURNING ketorolac AdvReac Unknown BLEEDING Verified 05/31/23 09:05 baclofen Allergy Intermediate Nausea Uncoded 05/31/23 09:05 oxycodone AdvReac Mild Nausea Uncoded 05/31/23 09:05 Home Medications Medication Instructions Recorded Confirmed Type coenzyme Q10 100 mg capsule 200 mg PO QAM 03/23/22 05/31/23 History (CoQ-10) cholecalciferol (vitamin D3) 125 125 mcg PO QAM 06/30/22 05/31/23 History mcg (5,000 unit) capsule metoprolol succinate 100 mg 100 mg PO HS #90 tabs 08/25/22 05/31/23 Rx tablet,extended release 24 hr blood sugar diagnostic (OneTouch #100 ea 02/22/23 04/30/23 Rx Ultra Test strips) blood-glucose meter #1 ea 02/22/23 04/30/23 Rx acetaminophen 650 mg 1,350 mg PO UD PRN Pain 04/16/23 05/31/23 History tablet,extended release carboxymethylcellulose sodium 0.5 1 drp ophthalmic (eye) UD PRN 04/16/23 05/31/23 History % eye drops (Refresh Tears) refresh tears duloxetine 60 mg capsule,delayed 60 mg PO HS 04/16/23 05/31/23 History release (Cymbalta) lutein 25 mg-zeaxanthin 5 mg 1 cap PO QAM 04/16/23 05/31/23 History capsule (Ocuvite Blue Light) sumatriptan succinate 50 mg tablet 50 mg PO UD PRN migraines 04/16/23 05/31/23 History (Imitrex) pzyhsfl-mkxvvn-amdzfb oil 0.12 1 g topical HS 04/16/23 05/31/23 History mg-87 mg-788 mg/g topical gel semaglutide 0.25 mg or 0.5 mg (2 0.5 mg (0.736 mL) subcut WK 90 04/21/23 05/31/23 Rx mg/3 mL) subcutaneous pen injector days #72 mL (Ozempic) methocarbamol 500 mg tablet 500 mg PO Q8H PRN back spasm #30 04/29/23 05/31/23 Rx tabs losartan 100 0.5 tab PO QAM 04/30/23 05/31/23 History mg-hydrochlorothiazide 25 mg tablet ezetimibe 10 mg tablet (Zetia) 10 mg PO HS #90 tabs 05/06/23 05/31/23 Rx levothyroxine 75 mcg tablet 75 mcg PO QAM #90 tabs 05/11/23 05/31/23 Rx omeprazole 20 mg capsule,delayed 40 mg PO QAM #180 caps 05/11/23 05/31/23 Rx release skpegxgryu-kxstzonuxwgcr-neaperim 1 cap PO Q8H PRN pain #10 caps 05/14/23 05/31/23 Rx 50 mg-300 mg-40 mg capsule (Fioricet) tramadol 50 mg tablet 50 - 100 mg PO BID PRN Pain #90 05/27/23 05/31/23 Rx tabs Past Med/Surg History Medical History (Updated 05/31/23 @ 10:10 by Clarke Gould DO) Anxiety disorder Chronic sinusitis Diabetes mellitus, type 2 NIDDM Fibromyalgia GERD (gastroesophageal reflux disease) controlled, stable per pt History of diverticulitis several yrs ago History of gastric ulcer History of gastritis History of paroxysmal supraventricular tachycardia HTN (hypertension) controlled, stable per pt Hypothyroidism Iron deficiency anemia Legally blind vestibular macular dystrophy Lumbar disc disease Migraines Mitral valve prolapse Osteopenia Sacroiliac joint pain Spondylolisthesis, cervical region limited rom Surgical History H/O tubal ligation History of abdominoplasty History of bladder surgery History of cardiac cath blacked out...cath...OVER 10 YEARS AGO AT [place]...no stent(s) etiology for blacking out : bradycardia - no further info. History of carpal tunnel release RT/LEFT History of cataract surgery RT/LEFT History of section History of cholecystectomy History of colonoscopy most recent 07/19/2020 [place] History of dilatation and curettage History of esophagogastroduodenoscopy (EGD) History of laminectomy (2018) L3-L4 05/22/1919 Grade 1 view with glidescope #3, ETT 7. History of lumbar spinal fusion (2018) L3-L4 07/07/19 elective glidescope, ETT 7. History of surgery on arm RT ULNAR NERVE RELEASE History of tonsillectomy and adenoidectomy History of tooth extraction History of total hysterectomy with bilateral salpingo-oophorectomy (BSO) History of total knee replacement RT/LEFT 04/22/16 [facility] L3-L4 1 attempt + PNB. Pt notes extended hospitalization for pain control with L TKA Nausea and vomiting after administration of anesthetic agent denies needing scop patch Family History Uncle Family history of esophageal cancer Mother Lung cancer Smoker Coronary heart disease Hypothyroidism Stroke Heart disease Father Myocardial infarction, Onset Age: 59 Coronary heart disease S/P CABG x 4 Diabetes Heart disease Brother Family history of reaction to anesthesia Coronary heart disease Hx of CABG Diabetes Hypertension Brother Coronary heart disease Aunt Breast cancer Other No family history of bleeding disorder Social History Smoking Status: Never smoker Second Hand Exposure: No; Do You Dip or Chew Tobacco: No; Hx Alcohol Use: No Hx Substance Use: No Preferred Language: Hebrew Communication Ability: Effective Communication Ability Comment: legally blind Visual Impairment: Blindness Hearing Ability: Normal Sterilizer Machine Operator Required: No Beliefs That Will Affect Care: None marital status: Current Living Situation: Alone current occupational status: retired and disabled 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 How many Children do You have: 2 How many Children do You have Comment: twin daughters Other Information That Helps Us Care for You: Yes (legally blind) Feels Safe at Home: Yes Diet: low carbohydrate and low salt caffeine: Yes during the past year weight has: decreased > 10 lbs Dental Care, Regularly: No Physical Activity Frequency: Daily Seatbelt Use: always Sunscreen Use: No Assistive Devices: Other Assistive Devices Comment: reading glasses Physical Exam Physical Exam: Patient is alert and oriented Heart regular rhythm Lungs clear Results & Data Results & Data Vital Signs (Past 12 Hours) Vital Signs Temp Pulse Resp BP Pulse Ox O2 Del Method 05/31/23 09:12 36.7 C 80 18 129/64 99 Room Air
[2023-05-31] MEDS ORDERED: ceFAZolin 330 MG/ML 1 GM VIAL ONE (10:15)
[2023-05-31] MEDS ORDERED: BUPIVACAINE/EPINEPHRINE 0.25% 1:200,000 30 ML VIAL ONE (10:15)
[2023-05-31] MEDS ORDERED: MIDAZOLAM HCL 1 MG/ML 2ML VIAL ONE (10:19)
[2023-05-31] MEDS ORDERED: KETAMINE 50 MG/5 ML SYRINGE ONE (11:02)
[2023-05-31] MEDS ORDERED: FLOSEAL HEMOSTATIC MATRIX 10ML TOP ONE (11:45)
[2023-05-31] MEDS ORDERED: SUGAMMADEX SODIUM 200 MG/2 ML VIAL IV ONE (11:52)
--- NOTE | 2023-05-31 12:13 | Operative Report ---
Post Operative Report Pre & Post Diagnosis Operation Date: 05/31/23 09:55 Pre-Op Diagnosis: Neurogenic claudication due to lumbar spinal stenosis Post-Op Diagnosis: Neurogenic claudication due to lumbar spinal stenosis I identified the patient and participated in the time-out.: Yes Procedure Operation Date: 05/31/23 09:55 Actual Procedures 1. Removal of posterior instrumentation L3-L4 #2 exploration of fusion L3-L4. #3 lumbar decompression bilaterally facetectomies and foraminotomies L4-L5. #4 posterior spinal fusion L4-5 #5 placement posterior instrumentation L3-L5. #6 interbody fusion L4-5. #7 placement of Spira 12 x 26 mm cage at L4-5. #8 placement locally harvested morselized autograft and posterior gutters. #9 placement of I factor bone of the test interbody space and posterior lateral gutters. Surgeon Clarke Gould, Facing Machine Operator none Estimated Blood Loss 50 Findings Consistent with Post-Op Diagnosis Specimens none Indications This is a 72-year-old female who presents above-mentioned diagnosis and failing course of nonoperative care she is here for surgical invention. Description of Procedure Patient was met with identified informed consent obtained. Patient was then taken to the operative suite underwent ablation placed in a prone position on the [place] table top Darell frame. All bony promises well-padded eyes inspected to ensure no external pressure placed upon them. This point lumbar spine was prepped and draped in a sterile fashion. Sharp dissection with the assistance of Bovie cautery to form down to and exposing the instrumentation at L3-L4 and the lamina and transverse processes of L4 and 5 bilaterally. I then proceeded move the hardware at L3-L4 bilaterally explore the fusion mass noted to be mature and intact. Informed complete laminectomy of L4 including bilateral medial facetectomy and foraminotomies bilaterally. Pedicle screws then placed in L3 L4-5 bilaterally with assistance of fluoroscopy and the properly sized dimitry placed. By way of transforaminal approach on the right complete discectomy of L4-5 was performed endplates guided to subcortically bone and a 12 x 26 mm Spira cage with I factor tapped in position. The rods then compressed locked in final position bilaterally. The transverse processes of L4-5 burred to subcortically bone. I factor amount of the test and locally harvested morselized autograft was placed in the posterior gutters. 15 round LYLE drain inserted. The incision was then closed with 1 Vicryl the fascia 2-0 Vicryl subcutaneously and 4 Monocryl for final skin closure. Steri-Strips sterile dressing placed. Patient awakened taken to PACU stable condition. Please note spinal cord monitoring was utilized at the procedure no changes noted. I attest to the content of the Intraoperative Record and any orders documented therein. Any exceptions are noted below.
[2023-05-31] MEDS ORDERED: HYDROmorphone INJ 2 MG/ML SYR/VIAL ONE (12:14)
--- NOTE | 2023-05-31 12:28 | Fluoroscopy Report ---
FL lumbar spine 2-3V CLINICAL HISTORY: L4-L5 D/F, L3-L4 HARDWARE REMOVAL COMPARISON STUDY: None. FLUOROSCOPY TIME: 12 seconds FLUOROSCOPY IMAGES: 2 Ka,r: 10.3 mGy FINDINGS: Posterior decompression and fusion from L3 through L5 with pedicle screws and rods. The gertrude dware appears intact. Disc spacers are placed. Small pledgets/spot identified posterior to the L4 yani tebral body. The surgeon is aware of this finding. IMPRESSION: Fluoroscopic assistance as above. ACT 112: Negative or not required by law. Electronically signed by: Benjamin Fraser M.D. 05/31/2023 12:26 PM
[2023-05-31] MEDS: fentaNYL citrate PF 100 MCG/2 ML VIAL IV PRN ×4 (12:35→13:15)
[2023-05-31] MEDS ORDERED: ATROPINE SULFATE 0.1 MG/ML 10ML SYR IV PRN (12:39)
[2023-05-31] MEDS ORDERED: ONDANSETRON INJ 2 MG/ML 2 ML VIAL IV PRN ×2 (12:39→13:52)
[2023-05-31] MEDS ORDERED: ePHEDrine sulfate 50 MG/ML AMP IV PRN (12:39)
[2023-05-31] MEDS ORDERED: HYDROmorphone INJ 2 MG/ML SYR/VIAL IV PRN (12:39)
[2023-05-31] MEDS ORDERED: PROMETHAZINE HCL 12.5 MG in SODIUM CHLORIDE 0.9% 50 ML IV PRN ×2 (12:39→13:52)
[2023-05-31] MEDS ORDERED: bisacodyL 10 MG SUPP PR PRN (13:52)
[2023-05-31] MEDS ORDERED: LORazepam 2 MG/1 ML VIAL IV PRN (13:52)
[2023-05-31] MEDS ORDERED: FAMOTIDINE 20 MG TAB PO PRN (13:52)
[2023-05-31] MEDS ORDERED: NALOXONE HCL 0.4 MG/1 ML VIAL/CARP IV PRN (13:52)
[2023-05-31] MEDS ORDERED: SUMAtriptan succinate 50 MG TAB PO PRN (13:52)
[2023-05-31] MEDS ORDERED: ACETAMINOPHEN 1,000 MG/100 ML VIAL IV PRN (13:52)
[2023-05-31] MEDS ORDERED: ALUMINUM/MAGNESIUM SUSP 30 ML UDC PO PRN (13:52)
[2023-05-31] MEDS ORDERED: HYDROmorphone INJ 0.5 MG/0.5 ML SYR IV PRN (13:52)
[2023-05-31] MEDS ORDERED: DO NOT ADMINISTER PNEUMOCOCCAL VACCINE PRN (13:52)
[2023-05-31] MEDS ORDERED: MAGNESIUM HYDROXIDE SUSP 30 ML UDC PO PRN (13:52)
[2023-05-31] MEDS ORDERED: ONDANSETRON 4 MG OD TAB PO PRN (13:52)
[2023-05-31] MEDS ORDERED: diphenhydrAMINE Capsule 25 MG CAP PO PRN (13:52)
[2023-05-31] MEDS ORDERED: DO NOT ADMINISTER FLU VACCINE PRN (13:52)
[2023-05-31] MEDS ORDERED: ACETAMINOPHEN 500 MG TAB PO PRN (13:52)
[2023-05-31] MEDS ORDERED: PHARMACY GLYCEMIC MGMT CONSULT PRN (13:52)
[2023-05-31] MEDS ORDERED: SOD PHOSPHATE/SOD BIPHOSPHATE ENEMA 132 ML BTL PR PRN (13:52)
[2023-05-31] MEDS ORDERED: METOCLOPRAMIDE HCL INJ 5 MG/ML 2 ML VIAL IV PRN (13:52)
[2023-05-31] MEDS: SODIUM CHLORIDE 0.9% 1000ML 1,000 ML IV SCH ×2 (13:55→23:58)
--- NOTE | 2023-05-31 13:57 | Anesthesiology Progress Note ---
Date of Service May 31, 2023 Anesthesia Post Procedure Vital Signs Vital Signs: Temp Pulse Resp BP Pulse Ox O2 Del Method O2 Flow Rate 05/31/23 12:40 85 18 115/65 100 Oxymask 3 05/31/23 13:30 90 18 121/60 100 Nasal Cannula 2 05/31/23 13:20 86 12 104/58 L 98 Room Air 05/31/23 13:10 83 12 106/55 L 98 Room Air 05/31/23 13:00 36.6 C 86 12 107/59 L 98 Room Air 05/31/23 12:50 78 12 99/74 L 100 Room Air 05/31/23 12:30 89 20 126/74 100 Oxymask 3 05/31/23 12:20 88 20 115/73 100 Oxymask 6 05/31/23 12:18 36.3 C L 89 18 124/76 100 Oxymask 6 05/31/23 09:12 36.7 C 80 18 129/64 99 Room Air Pain Intensity Right Leg: Pain Intensity: 1 Transfer of Care Handoff Completed per policy Notes Mental Status: alert / awake / arousable and participated in evaluation Patient Amnestic to Procedure: Yes Nausea / Vomiting: adequately controlled Pain: adequately controlled Airway Patency, RR, SpO2: stable & adequate BP & HR: stable & adequate Hydration State: stable & adequate Anesthetic Complications: no major complications apparent
[2023-05-31] MEDS ORDERED: ARTIFICIAL TEARS OP PRN (14:08)
[2023-05-31] MEDS: LORazepam 0.5 MG TAB PO PRN (14:20)
[2023-05-31] MEDS ORDERED: GLUCOSE 10 TAB/TUBE PO PRN (14:30)
[2023-05-31] MEDS ORDERED: GLUCAGON FOR INJ 1 MG VIAL IM PRN (14:30)
[2023-05-31] MEDS ORDERED: GLUCOSE 40% GEL 15 GM TUBE PO PRN (14:30)
[2023-05-31] MEDS ORDERED: DEXTROSE 50% 50 ML SYRINGE IV PRN (14:30)
[2023-05-31] MEDS ORDERED: CARBOHYDRATES FOR HYPOGLYCEMIA PO PRN (14:30)
--- NOTE | 2023-05-31 14:44 | Pharmacy Report ---
Pharmacy Glycemic Short Note 2 - Date of Service May 31, 2023 - Glycemic Short BSG Results (Last 24 hours): 05/31/23 05/31/23 08:53 12:29 POC Glucose 127 H 124 H OUTPATIENT ANTIDIABETIC REGIMEN: * Ozempic 0.5mg SQ weekly * HbA1c: 5.9% (05/27/23) ASSESSMENT: * Ms Deshpande is a 72yo diabetic F, POD 0 s/p spinal surgery w/ Dr Gould this morning. * It appears as though pt received 8mg IV DXM intraoperatively today. * Post-op BSG reasonable (124 mg/dL) and pt is ordered a clear liquid diet for now. No further steroids have been ordered, therefore, holding off on basal insulin at this time. Patient's A1c indicates excellent glycemic control as an outpt, managed only on Ozempic. * Novolog initiated on admission for correctional/prandial control. Overnight checks added for tonight in case pt does begin to exhibit steroid-induced hyperglycemia. * Pharmacy will continue to follow and adjust regimen as indicated. PLAN FOR INPATIENT GLYCEMIC CONTROL: * Basal insulin * none at this time; will re-assess tomorrow * Bolus insulin * NovoLog per scale ACHS or Q6hrs while NPO * Goal Range: Low 110 mg/dL - High 140 mg/dL * Correction Factor: 30 mg/dL/unit * Nutritional / Prandial insulin per carb ratio of 1 unit per 10 grams CHO consumed
[2023-05-31] MEDS: hydrOXYzine HCl 25 MG TAB PO PRN (14:47)
[2023-05-31] MEDS: oxyCODONE HCL IR 5 MG TAB (IMMEDIATE RELEASE) PO PRN ×2 (15:54→23:58)
[2023-05-31] MEDS: INSULIN ASPART PER UNIT CHARGE SC SCH ×2 (16:54→21:08)
[2023-05-31] MEDS: HYDROmorphone INJ 1 MG/ML SYRINGE IV PRN ×2 (16:54→20:04)
[2023-05-31] MEDS: CLINDAMYCIN/D5W 600 MG/50 ML BAG IV SCH (17:00)
[2023-05-31] MEDS: DOCUSATE SODIUM/SENNA 50/8.6MG TAB PO SCH (21:00)
[2023-05-31] MEDS: DULoxetine HCL 60 MG CAP PO SCH (21:00)
[2023-05-31] MEDS: EZETIMIBE 10 MG TAB PO SCH (21:00)
[2023-05-31] MEDS: METOPROLOL SUCC 50MG EXT REL TAB PO SCH (21:01)
[2023-06-01] MEDS: INSULIN ASPART PER UNIT CHARGE SC SCH ×6 (00:06→21:22)
[2023-06-01] MEDS: CLINDAMYCIN/D5W 600 MG/50 ML BAG IV SCH (01:47)
[2023-06-01] MEDS: HYDROmorphone INJ 1 MG/ML SYRINGE IV PRN ×5 (01:59→22:26)
[2023-06-01] MEDS: oxyCODONE HCL IR 5 MG TAB (IMMEDIATE RELEASE) PO PRN ×4 (04:17→21:20)
[2023-06-01] MEDS: LORazepam 0.5 MG TAB PO PRN ×3 (04:21→19:57)
[2023-06-01] MEDS: LEVOTHYROXINE SODIUM 75 MCG TABLET PO SCH (05:55)
[2023-06-01] MEDS: POLYETHYLENE (MIRALAX) 17 GM PACK PO SCH ×3 (05:59→17:00)
[2023-06-01 06:17] LABS: Basophils # (auto) 0.01 K/uL (0-0.2); Basophils % (auto) 0.1 %; Hematocrit (blood only) 28.2 % (37.0-47.0); Hemoglobin 9.4 g/dl (12.0-16.0); Immature Granulocytes # (auto) 0.04 K/uL (0.01-0.20); Immature Granulocytes % (auto) 0.4 %; Lymphocytes # (auto) 1.53 K/uL (1.2-3.4); Lymphocytes % (auto) 14.9 %; Mean Corpuscular Hemoglobin 28.6 pg (25.0-34.0); Mean Corpuscular Hgb Conc 33.3 g/dL (32.0-36.0); Mean Corpuscular Volume 85.7 fL (80.0-100.0); Mean Platelet Volume 9.4 fL (9.4-12.4); Monocytes # (auto) 0.92 K/uL (0.11-0.59); Neutrophils # (auto) 7.77 K/uL (1.40-6.50); Neutrophils % (auto) 75.6 %; Platelet Count 281 K/uL (130-400); RDW Coefficient of Variation 12.7 % (11.5-14.5); RDW Standard Deviation 39.4 fL (36.4-46.3); Red Blood Count 3.29 M/uL (4.20-5.40); White Blood Count 10.27 K/ul (4.8-10.8)
[2023-06-01 06:37] LABS: BUN Creatinine Ratio 21.3 (10-20); Calcium 8.4 mg/dl (8.6-10.3); Creatinine Clr Calc Pharmacy 59.3 ml/min; Est GFR (African American) 92.3 ml/min; Est GFR (Non-African American) 79.6 ml/min
[2023-06-01] MEDS: CHOLECALCIFEROL 5,000 UNITS 125 MCG TAB PO SCH (07:27)
[2023-06-01] MEDS ORDERED: LOSARTAN/HCTZ 50/12.5MG TAB PO SCH (09:00)
[2023-06-01] MEDS ORDERED: LUTEIN ZEAXANTHIN PO SCH (09:00)
[2023-06-01] MEDS ORDERED: NON-FORMULARY MEDICATION (Coenzyme Q10 [Coq-10] 100 mg capsule) PO SCH (09:00)
[2023-06-01] MEDS: PANTOprazole 40 MG TAB PO SCH (10:05)
--- NOTE | 2023-06-01 10:09 | Orthopedic Progress Note ---
Date of Service June 01, 2023 Assessment & Plan (1) Neurogenic claudication due to lumbar spinal stenosis: Plan: This time initiate physical therapy monitor LYLE operatively discharge home in the next few days. Admission and Anticipated Discharge Date Admission Date: May 31, 2023 Subjective Back pain controlled leg pain improved Physical Exam Physical Exam: Patient is comfortable. Resection strength testing. Results & Data Vital Signs (Past 12 Hours) Vital Signs Temp Pulse Resp BP Pulse Ox O2 Del Method 06/01/23 07:14 36.7 C 79 18 102/67 98 Room Air 06/01/23 04:04 36.7 C 82 18 100/55 L 93 Room Air 06/01/23 00:00 36.7 C 89 20 108/63 98 Room Air
--- NOTE | 2023-06-01 10:28 | Hospitalist Consultation ---
Date of Consultation June 01, 2023 Assessment & Plan (1) Neurogenic claudication due to lumbar spinal stenosis: Postoperative management as per orthopedic spine surgeon Pain control, bowel regimen ordered LYLE drain in place Hemoglobin with drop to 9.4 from 12.8 preoperatively-likely acute blood loss anemia plus hemodilution from IV fluids although EBL only listed at 50 mL Follow CBC, BMP in the morning (2) Diabetes mellitus, type 2: Pharmacy glycemic management is in place newer diagnosis and mild, previously on metformin but then switched to Ozempic q Wednesday Last A1C well controlled at 5.9% Continue insulin as per their recommendations Diabetic diet and glucose checks (3) HTN (hypertension): Blood pressures are well controlled to low normal and have been on the lower side at home since losing 35 lbs from being on Ozempic She received 1/2 tab of the HCTZ/losartan 50/12.5mg today-will now discontinue Continue metoprolol especially given h/o SVT Follow BMP and blood pressures plan to eliminate HCTZ on discharge as her BPs have been low at home and she denies edema other than occasionally with hot weather start losartan 25mg po daily after discharge-Rx called into her pharmacy for renal prptection with DMII and f/u BPs at home and with PCP (4) Hyperlipidemia: Continue home Zetia (5) History of paroxysmal supraventricular tachycardia: none here thus far-she can tell when it occurs and typically takes an extra metoprolol continue Toprol XL 100mg po daily (6) Hypothyroidism: Recent TSH mildly low at 0.1 Continue usual levothyroxine dose of 75 mcg daily for now and recommend follow- up with PCP, f/u TSH in 6-8 weeks (7) GERD (gastroesophageal reflux disease): Continue PPI (8) Anemia: Has a history of iron deficiency anemia which seems to be resolved Now with acute blood loss anemia as noted above Follow CBC and transfuse if drops less than 7-8 or is hemodynamically unstable LYLE drain in place (9) Vitamin D deficiency: Continue home vitamin D supplement (10) Chronic rhinitis: No acute issues, not taking medications for this currently (11) Anxiety disorder: No acute issues Continue home duloxetine which is also likely prescribed for history of lumbar neurogenic claudication (12) Migraines: Sumatriptan as needed No acute issues Plan DVT prophylaxis-SCDs and PABLITO hose only, no chemical anticoagulation to be given given recent spine surgery Disposition-continued stay on medical/surgical unit, hospitalist service will follow along for at least 1 more day, but is likely being discharged to home tomorrow History of Present Illness Reason for Consultation: Medical management Requesting Physician: Dr. Gould Attending Physician: Clarke Gould, DO History of Present Illness This patient is a 72-year-old female with a history of HTN, DM 2, GERD, hypothyroidism, anxiety with depression, osteopenia, iron deficiency anemia, hyperlipidemia, vitamin D deficiency, OA, chronic rhinitis, migraine headaches, and lumbar radiculopathy who is admitted to the hospital postoperatively from a removal of posterior instrumentation, and repeat lumbar decompression and spinal fusion at L3-L5. She denies lightheadedness, headache, nausea/vomiting, no abd pain. Last BM 2 days ago. No CP or SOB, no palpitations. Having pain in lower back despite receiving po oxycodone. She is worried about her BP being too low lately as she has lost 35 lbs from taking Ozempic. The hospitalist service was consulted for postoperative medical management. The glycemic control pharmacist has already been consulted for management of her diabetes postoperatively. Allergies Allergy/AdvReac Type Severity Reaction Status Date / Time Iodinated Contrast Media Allergy Severe headache, Verified 05/31/23 09:05 n/v, hives, rash iodine Allergy Severe headache, Verified 05/31/23 09:05 n/v, hives, rash causing hospitalization Penicillins Allergy Severe anaphylaxis Verified 05/31/23 09:05 Sulfa (Sulfonamide Allergy Severe ITCHING OF Verified 05/31/23 09:05 Antibiotics) THROAT codeine Allergy Intermediate n/v, Verified 05/31/23 09:05 headache doxycycline Allergy Intermediate NAUSEA, Verified 05/31/23 09:05 vomiting Egg Derived Allergy Intermediate NAUSEA Verified 05/31/23 09:05 latex Allergy Intermediate ITCHING Verified 05/31/23 09:05 ERYTHEMA morphine Allergy Intermediate n/v,headach Verified 05/31/23 09:05 e soap Allergy Intermediate ITCHING Verified 05/31/23 09:05 "DIAL SOAP" chlorhexidine Allergy Unknown ITCHING, Verified 05/31/23 09:05 TINGLING propoxyphene Allergy Unknown pt not Verified 05/31/23 09:05 sure reaction/remote hx 1970's soy Allergy Unknown INDIGESTION Verified 05/31/23 09:05 aspirin AdvReac Severe 'hypersensitivity' Verified 05/31/23 09:05 per pt BURNING OF STOMACH carbamazepine AdvReac Severe confusion, Verified 05/31/23 09:05 blurred vision fluoxetine AdvReac Severe strong Verified 05/31/23 09:05 aggression gabapentin AdvReac Severe falling Verified 05/31/23 09:05 NSAIDS (Non-Steroidal AdvReac Severe gatritis, Verified 05/31/23 09:05 Anti-Inflamma epistaxis pregabalin AdvReac Severe falling Verified 05/31/23 09:05 thiopental AdvReac Severe n/v Verified 05/31/23 09:05 (severe), headache fentanyl AdvReac Intermediate NAUSEA Verified 05/31/23 09:05 FROM PATCH chlorpromazine AdvReac Unknown pt unsure, Verified 05/31/23 09:05 states should not be administered ibuprofen AdvReac Unknown STOMACH Verified 05/31/23 09:05 BURNING ketorolac AdvReac Unknown BLEEDING Verified 05/31/23 09:05 baclofen Allergy Intermediate Nausea Uncoded 05/31/23 09:05 oxycodone AdvReac Mild Nausea Uncoded 05/31/23 09:05 Home Medications Medication Instructions Recorded Confirmed Type coenzyme Q10 100 mg capsule 200 mg PO QAM 03/23/22 05/31/23 History (CoQ-10) cholecalciferol (vitamin D3) 125 125 mcg PO QAM 06/30/22 05/31/23 History mcg (5,000 unit) capsule metoprolol succinate 100 mg 100 mg PO HS #90 tabs 08/25/22 05/31/23 Rx tablet,extended release 24 hr blood sugar diagnostic (OneTouch #100 ea 02/22/23 04/30/23 Rx Ultra Test strips) blood-glucose meter #1 ea 02/22/23 04/30/23 Rx acetaminophen 650 mg 1,350 mg PO UD PRN Pain 04/16/23 05/31/23 History tablet,extended release carboxymethylcellulose sodium 0.5 1 drp ophthalmic (eye) UD PRN 04/16/23 05/31/23 History % eye drops (Refresh Tears) refresh tears duloxetine 60 mg capsule,delayed 60 mg PO HS 04/16/23 05/31/23 History release (Cymbalta) lutein 25 mg-zeaxanthin 5 mg 1 cap PO QAM 04/16/23 05/31/23 History capsule (Ocuvite Blue Light) sumatriptan succinate 50 mg tablet 50 mg PO UD PRN migraines 04/16/23 05/31/23 History (Imitrex) qymfsdm-fwykyf-bxnvlg oil 0.12 1 g topical HS 04/16/23 05/31/23 History mg-87 mg-788 mg/g topical gel semaglutide 0.25 mg or 0.5 mg (2 0.5 mg (0.736 mL) subcut WK 90 04/21/23 Rx mg/3 mL) subcutaneous pen injector days #72 mL (Ozempic) methocarbamol 500 mg tablet 500 mg PO Q8H PRN back spasm #30 04/29/23 05/31/23 Rx tabs losartan 100 0.5 tab PO QAM 04/30/23 05/31/23 History mg-hydrochlorothiazide 25 mg tablet ezetimibe 10 mg tablet (Zetia) 10 mg PO HS #90 tabs 05/06/23 05/31/23 Rx levothyroxine 75 mcg tablet 75 mcg PO QAM #90 tabs 05/11/23 05/31/23 Rx omeprazole 20 mg capsule,delayed 40 mg PO QAM #180 caps 05/11/23 05/31/23 Rx release gbqohtaujm-vskaxczjwaoaz-htarbvok 1 cap PO Q8H PRN pain #10 caps 05/14/23 05/31/23 Rx 50 mg-300 mg-40 mg capsule (Fioricet) tramadol 50 mg tablet 50 - 100 mg PO BID PRN Pain #90 05/27/23 05/31/23 Rx tabs losartan 25 mg tablet 25 mg PO DAILY #30 tabs 06/01/23 Rx oxycodone 5 mg tablet 5 mg PO Q6H PRN pain #30 tabs 06/01/23 Rx tramadol 50 mg tablet 50 mg PO Q6H PRN pain, moderate 06/01/23 Rx #30 tabs Patient History Medical History (Updated 06/01/23 @ 11:27 by Elina Blanchard MD) Anxiety disorder Chronic sinusitis Diabetes mellitus, type 2 NIDDM Fibromyalgia GERD (gastroesophageal reflux disease) controlled, stable per pt History of diverticulitis several yrs ago History of gastric ulcer History of gastritis History of paroxysmal supraventricular tachycardia HTN (hypertension) controlled, stable per pt Hypothyroidism Iron deficiency anemia Legally blind vestibular macular dystrophy Lumbar disc disease Migraines Mitral valve prolapse Osteopenia Sacroiliac joint pain Spondylolisthesis, cervical region limited rom Surgical History H/O tubal ligation History of abdominoplasty History of bladder surgery History of cardiac cath blacked out...cath...OVER 10 YEARS AGO AT [place]...no stent(s) etiology for blacking out : bradycardia - no further info. History of carpal tunnel release RT/LEFT History of cataract surgery RT/LEFT History of section History of cholecystectomy History of colonoscopy most recent 07/19/2020 [place] History of dilatation and curettage History of esophagogastroduodenoscopy (EGD) History of laminectomy (2018) L3-L4 05/22/1919 Grade 1 view with glidescope #3, ETT 7. History of lumbar spinal fusion (2018) L3-L4 07/07/19 elective glidescope, ETT 7. History of surgery on arm RT ULNAR NERVE RELEASE History of tonsillectomy and adenoidectomy History of tooth extraction History of total hysterectomy with bilateral salpingo-oophorectomy (BSO) History of total knee replacement RT/LEFT 04/22/16 [facility] L3-L4 1 attempt + PNB. Pt notes extended hospitalization for pain control with L TKA Nausea and vomiting after administration of anesthetic agent denies needing scop patch Family History Uncle Family history of esophageal cancer Mother Lung cancer Smoker Coronary heart disease Hypothyroidism Stroke Heart disease Father , age 59 Myocardial infarction, Onset Age: 59 Coronary heart disease S/P CABG x 4 Diabetes Heart disease Brother Family history of reaction to anesthesia extreme difficulty waking after anesthesia, has severe sleep apnea Coronary heart disease Hx of CABG Diabetes Hypertension Brother Coronary heart disease Aunt Breast cancer Other No family history of bleeding disorder Social History Smoking Status: Never smoker Second Hand Exposure: No; Do You Dip or Chew Tobacco: No; Hx Alcohol Use: No Hx Substance Use: No Preferred Language: Estonian Communication Ability: Effective Communication Ability Comment: legally blind Visual Impairment: Blindness Hearing Ability: Normal Traffic Analyst Required: No Beliefs That Will Affect Care: None marital status: Current Living Situation: Alone current occupational status: retired and disabled 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 How many Children do You have: 2 How many Children do You have Comment: twin daughters Other Information That Helps Us Care for You: Yes (legally blind) Feels Safe at Home: Yes Diet: low carbohydrate and low salt caffeine: Yes during the past year weight has: decreased > 10 lbs Dental Care, Regularly: No Physical Activity Frequency: Daily Seatbelt Use: always Sunscreen Use: No Assistive Devices: Other Assistive Devices Comment: reading glasses Review of Systems Review of Systems: All systems reviewed & are unremarkable except as noted in HPI & below Physical Exam Constitutional: WD/WN, vitals as above Eyes: PERRL, conjunctivae normal, anicteric sclerae ENMT: external ear and nose normal, oropharynx normal Neck: trachea midline, no thyromegaly Respiratory: normal respiratory effort, lungs clear to auscultation Cardiovascular: RRR, no murmur, no edema Chest (Breasts): Chest: normal inspection of chest Gastrointestinal (Abdomen): normal bowel sounds, soft, nontender, no hepatosplenomegaly Musculoskeletal: Extremities: extremities normal to inspection; no cyanosis and no clubbing lower back with dressing in place c/d/i Skin: no rashes, warm and dry Neurologic: moves all extremities and awake; no focal motor deficits Psychiatric: A+Ox3, euthymic affect Lymphatic: no lymphedema Results & Data Results & Data Vital Signs (Past 12 Hours) Vital Signs Temp Pulse Resp BP Pulse Ox O2 Del Method 06/01/23 07:14 36.7 C 79 18 102/67 98 Room Air 06/01/23 04:04 36.7 C 82 18 100/55 L 93 Room Air 06/01/23 00:00 36.7 C 89 20 108/63 98 Room Air Laboratory Results CBC, BMP reviewed Diagnostic Findings Preoperative chest x-ray from 04/19/2023 reviewed and normal. ECG Additional Comments: Preoperative ECG from 04/19/2023 with normal sinus rhythm, rate 77, nonspecific ST and T wave abnormality in anterolateral leads and minimal criteria for inferior infarct new from previous PG Care Time/CCT Total # of Minutes Spent Total Time Spent with Patient: Total time spent is greater than 50% in coordination of care (as documented) at patient's floor/unit and/or counseling patient: Coding Level of Care Code 67354 IN/OBS CONSULT LVL 3,45M Diagnoses Neurogenic claudication due to lumbar spinal stenosis M48.062 Diabetes mellitus, type 2 E11.9 HTN (hypertension) I10 Hyperlipidemia E78.5 History of paroxysmal supraventricular tachycardia Z86.79 Hypothyroidism E03.9 GERD (gastroesophageal reflux disease) K21.9 Anemia D64.9 Vitamin D deficiency E55.9 Chronic rhinitis J31.0 Anxiety disorder F41.9 Migraines G43.909
[2023-06-01] MEDS: hydrOXYzine HCl 25 MG TAB PO PRN (17:31)
[2023-06-01] MEDS: traMADol HCL 50 MG TABLET PO PRN (20:00)
[2023-06-01] MEDS: METOPROLOL SUCC 50MG EXT REL TAB PO SCH (21:20)
[2023-06-01] MEDS: DULoxetine HCL 60 MG CAP PO SCH (21:21)
[2023-06-01] MEDS: DOCUSATE SODIUM/SENNA 50/8.6MG TAB PO SCH (21:21)
[2023-06-01] MEDS: EZETIMIBE 10 MG TAB PO SCH (21:21)
[2023-06-02] MEDS: POLYETHYLENE (MIRALAX) 17 GM PACK PO SCH ×2 (00:44→06:01)
[2023-06-02] MEDS: HYDROmorphone INJ 1 MG/ML SYRINGE IV PRN (03:37)
[2023-06-02] MEDS: LEVOTHYROXINE SODIUM 75 MCG TABLET PO SCH (06:00)
[2023-06-02] MEDS: oxyCODONE HCL IR 5 MG TAB (IMMEDIATE RELEASE) PO PRN ×2 (06:00→10:23)
[2023-06-02 07:05] LABS: Basophils # (auto) 0.02 K/uL (0-0.2); Basophils % (auto) 0.2 %; Eosinophils # (auto) 0.02 K/uL (0-0.50); Eosinophils % (auto) 0.2 %; Hematocrit (blood only) 31.1 % (37.0-47.0); Hemoglobin 10.2 g/dl (12.0-16.0); Immature Granulocytes # (auto) 0.02 K/uL (0.01-0.20); Immature Granulocytes % (auto) 0.2 %; Lymphocytes # (auto) 2.25 K/uL (1.2-3.4); Lymphocytes % (auto) 25.5 %; Mean Corpuscular Hemoglobin 28.7 pg (25.0-34.0); Mean Corpuscular Hgb Conc 32.8 g/dL (32.0-36.0); Mean Corpuscular Volume 87.6 fL (80.0-100.0); Mean Platelet Volume 9.7 fL (9.4-12.4); Monocytes # (auto) 1.02 K/uL (0.11-0.59); Monocytes % (auto) 11.5 %; Neutrophils # (auto) 5.51 K/uL (1.40-6.50); Neutrophils % (auto) 62.4 %; Platelet Count 311 K/uL (130-400); RDW Coefficient of Variation 12.9 % (11.5-14.5); RDW Standard Deviation 41.1 fL (36.4-46.3); Red Blood Count 3.55 M/uL (4.20-5.40); White Blood Count 8.84 K/ul (4.8-10.8)
[2023-06-02 07:24] LABS: BUN Creatinine Ratio 15.5 (10-20); Calcium 8.8 mg/dl (8.6-10.3); Creatinine Clr Calc Pharmacy 62.6 ml/min; Est GFR (African American) 98.6 ml/min; Est GFR (Non-African American) 85.1 ml/min; Potassium 3.7 mmol/L (3.5-5.1)
[2023-06-02] MEDS: traMADol HCL 50 MG TABLET PO PRN (07:57)
[2023-06-02] MEDS: LORazepam 0.5 MG TAB PO PRN (07:57)
[2023-06-02] MEDS: CHOLECALCIFEROL 5,000 UNITS 125 MCG TAB PO SCH (07:59)
[2023-06-02] MEDS: PANTOprazole 40 MG TAB PO SCH (07:59)
[2023-06-02] MEDS: INSULIN ASPART PER UNIT CHARGE SC SCH (08:01)
--- NOTE | 2023-06-02 08:24 | Discharge Summary ---
Date of Service June 02, 2023 Admission HPI Per Admitting Provider This is a 72-year-old female well-known to me the presents with chronic persistent back and leg pain after failing course of nonoperative care she is here for surgical invention. Principal Diagnosis Lumbar spinal stenosis with neurogenic claudication Discharge Data Allergies Allergy/AdvReac Type Severity Reaction Status Date / Time Iodinated Contrast Media Allergy Severe headache, Verified 05/31/23 09:05 n/v, hives, rash iodine Allergy Severe headache, Verified 05/31/23 09:05 n/v, hives, rash causing hospitalization Penicillins Allergy Severe anaphylaxis Verified 05/31/23 09:05 Sulfa (Sulfonamide Allergy Severe ITCHING OF Verified 05/31/23 09:05 Antibiotics) THROAT codeine Allergy Intermediate n/v, Verified 05/31/23 09:05 headache doxycycline Allergy Intermediate NAUSEA, Verified 05/31/23 09:05 vomiting Egg Derived Allergy Intermediate NAUSEA Verified 05/31/23 09:05 latex Allergy Intermediate ITCHING Verified 05/31/23 09:05 ERYTHEMA morphine Allergy Intermediate n/v,headach Verified 05/31/23 09:05 e soap Allergy Intermediate ITCHING Verified 05/31/23 09:05 "DIAL SOAP" chlorhexidine Allergy Unknown ITCHING, Verified 05/31/23 09:05 TINGLING propoxyphene Allergy Unknown pt not Verified 05/31/23 09:05 sure reaction/remote hx 1970's soy Allergy Unknown INDIGESTION Verified 05/31/23 09:05 aspirin AdvReac Severe 'hypersensitivity' Verified 05/31/23 09:05 per pt BURNING OF STOMACH carbamazepine AdvReac Severe confusion, Verified 05/31/23 09:05 blurred vision fluoxetine AdvReac Severe strong Verified 05/31/23 09:05 aggression gabapentin AdvReac Severe falling Verified 05/31/23 09:05 NSAIDS (Non-Steroidal AdvReac Severe gatritis, Verified 05/31/23 09:05 Anti-Inflamma epistaxis pregabalin AdvReac Severe falling Verified 05/31/23 09:05 thiopental AdvReac Severe n/v Verified 05/31/23 09:05 (severe), headache fentanyl AdvReac Intermediate NAUSEA Verified 05/31/23 09:05 FROM PATCH chlorpromazine AdvReac Unknown pt unsure, Verified 05/31/23 09:05 states should not be administered ibuprofen AdvReac Unknown STOMACH Verified 05/31/23 09:05 BURNING ketorolac AdvReac Unknown BLEEDING Verified 05/31/23 09:05 baclofen Allergy Intermediate Nausea Uncoded 05/31/23 09:05 oxycodone AdvReac Mild Nausea Uncoded 05/31/23 09:05 Consultations 06/01/23 09:56 Consult Hospitalist Routine Procedures Performed Operation Date: 05/31/23 09:55 Actual Procedures p L4-L5 Decompression and Fusion, L3-L4 Hardware Removal, Spinal Cord Monitoring(Not Applicable) - Clarke Gould DO Ordered Studies 05/31/23 [place] lumbar spine 2-3V Routine Hospital Course (1) Neurogenic claudication due to lumbar spinal stenosis: Patient underwent lumbar decompression fusion tolerated as well as taken orthopedic. Lipid postop and when she was up and ambulating Aaron postop day #2 . LYLE drain decreasing probably. Pain well controlled. Extra strength testing. Subsequently discharged home. Discharge orders and instructions found in chart for further review. Total Time Total Time Spent Total Time Spent (In Minutes): 20 minutes Discharge Plan Discharge Items Patient Disposition: Home - Self-Care Reason For Visit: Spondylolithiasis, Lumbar Region Discharge Diagnosis: Lumbar spinal stenosis with neurogenic claudication Activity: As commented below Non-emergency contact: Primary Care Provider Call non-emergency contact if: you have any medication questions Follow-up/Referrals: Kassandra Castro DO [Primary Care Provider] - Diet: Regular Addtl Attending Provider Instructions: ACTIVITY RECOMMENDATIONS: SELF CARE INSTRUCTIONS AFTER THORACIC/LUMBAR FUSIONS 1. You may walk to your tolerance. It is good exercise for your legs and back. Expect some back and intermittent leg aches and pains. 2. You may perform "counter-top" level activities (make a sandwich, [place] with a project, etc.). 3. No bending or lifting of more than 10 pounds or back twisting of any nature (roll like a log when turning in bed). 4. You may ride in a car for 20-30 minutes at a time. No driving until after your first visit with your doctor. 5. Frequent changes of position and restricting sitting to 30 minutes at a time will help limit the amount of back spasms and stiffness you may experience. 6. You may discontinue the use of ambulatory aids (cane, crutches, etc.) once your strength and confidence allow. 7. 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 Do not take a tub bath, sit in a hot tub or go into a swimming pool until after your first recheck in the office. SPECIAL CARE INSTRUCTIONS: VERY IMPORTANT TO READ AND REVIEW A. Your surgical incision has been closed with a cosmetic suture under the skin that will dissolve in about 6 weeks. In 14 days, you can use a pair of clean scissors and cut the suture that is left outside of the skin at the ends of your incision. 1. The small skin tapes can be removed 7 days after surgery if they have not fallen off by that point. 2. You may keep the wound open to air as much as possible to promote healing after post-op day number 5 unless told otherwise by your doctor. 3. If you think the wound looks like it is becoming infected (redness or worsening drainage) and/or you are experiencing fever, chill or worsening back pain and muscle spasms, contact the office so that we may evaluate you as soon as possible. B. Complications are uncommon, but please contact us if you have any signs or symptoms of: 1. wound infection (fever higher than 102.5 degrees F, redness, separation of wound, drainage, or increasing pain from the incision) 2. blood clots in legs (pain, swelling, redness and warmth in legs) 3. urinary tract infection (fever higher than 102.5 degrees F, burning upon urination or increased frequency of urination) 4. nerve problems (inability to walk on your toes or heels, numbness, loss of bowel or bladder control) 5. any other symptoms that concern you C. Please call the office at if you have any concerns or questions about your operation or recovery. D. No smoking! Smoking drastically decreases the chance of a solid fusion. E. Do not take any anti-inflammatory medications (Indocin, Advil, Motrin, Aspirin, Naprosyn, etc.) as these may inhibit the chance of a solid fusion. Tylenol is okay to take for pain. MANAGING PAIN AFTER SPINAL SURGERY 1. Narcotic medication is intended for short-term use and will be provided for surgical pain. Surgical pain usually lasts for a period of 4-6 weeks. Narcotic medication includes Percocet, Vicodin, Darvocet, Tylenol #3 or Lortab. 2. Longer-term pain is more appropriately treated with non-narcotic medication such as Tylenol ES. 3. Muscle spasm is not appropriately treated with narcotics. Muscle relaxers such as Soma, Flexeril or Skelaxin can be used along with Tylenol ES. 4. Remember that we all live with some "aches and pains". This is not unusual or uncommon after an injury or as we get older. a. Back pain is expected and may include muscle spasms for 4 to 6 weeks after surgery. The pain should gradually improve. If the pain worsens for no apparent reason, please contact the office. b. Intermittent leg pain may also be experienced and should not be concerned about unless it worsens for no apparent reason. If so, please contact the office. 5. We will provide appropriate medication within the normal guidelines of their prescribed use. We will also be very cautious and aware of potential abuse and extended duration of patients' medication needs. a. Pain medications are for your comfort and to assist with sleep and rest so that the tissue can heal. They are not provided in order to return to normal activity and should not be used through the day. To do so or worsening pain at night can result from ongoing tissue damage and development of tolerance to the prescribed medicine. 6. Please allow 2-3 days to process refills. Prescriptions will not be mailed but must be picked up at the office. FOLLOW UP VISIT: Keep your scheduled follow-up appointment. Any questions, please call the office at . Addtl Performance Consultant Provider Instructions: Because your blood pressures have been running on the lower side since your weight loss from Ozempic, your losartan/HCTZ was STOPPED and a lower dose of losartan 25mg daily will be called into your pharmacy for you. Please follow up with your PCP about your blood pressure. -Dr. Elina Blanchard [facility] Hospitalist Pending Studies at Discharge: No Stand-Alone Forms: [facility], Smoking Cessation Medications and DC Order Prescriptions: New tramadol 50 mg tablet 50 mg PO Q6H PRN (Reason: pain, moderate) Qty: 30 0RF oxycodone 5 mg tablet 5 mg PO Q6H PRN (Reason: pain) Qty: 30 0RF losartan 25 mg tablet 25 mg PO DAILY Qty: 30 0RF Continued metoprolol succinate 100 mg tablet extended release 24 hr 100 mg PO HS Qty: 90 3RF (DME) blood-glucose meter Kit See Rx Instructions .ROUTE .MEDSUPPLY Qty: 1 0RF Rx Instructions: As directed. DX: E11.9 (DME) OneTouch Ultra Test Strip See Rx Instructions .ROUTE .MEDSUPPLY Qty: 100 5RF Rx Instructions: Testing BS daily Ozempic 0.25 mg or 0.5 mg (2 mg/3 mL) pen injector 0.5 mg subcut WK 90 Days Qty: 72 3RF methocarbamol 500 mg tablet 500 mg PO Q8H PRN (Reason: back spasm) Qty: 30 1RF ezetimibe [Zetia] 10 mg tablet 10 mg PO HS Qty: 90 0RF levothyroxine 75 mcg tablet 75 mcg PO QAM Qty: 90 3RF omeprazole 20 mg capsule,delayed release(DR/EC) 40 mg PO QAM Qty: 180 1RF ufsllbodos-ndviixacmerpd-qxnq [Fioricet] 50-300-40 mg capsule 1 cap PO Q8H PRN (Reason: pain) Qty: 10 0RF tramadol 50 mg tablet 50 - 100 mg PO BID PRN (Reason: Pain) Qty: 90 0RF Rx Instructions: Take 1 tab PO every 8 hours PRN; 2 tablets at bedtime as needed for neck pain. cholecalciferol (vitamin D3) 125 mcg (5,000 unit) capsule 125 mcg PO QAM coenzyme Q10 [CoQ-10] 100 mg capsule 200 mg PO QAM carboxymethylcellulose sodium [Refresh Tears] 0.5 % Drops 1 drp OPHTHALMIC (EYE) UD PRN (Reason: refresh tears) Rx Instructions: bid lutein-zeaxanthin [Ocuvite Blue Light] 25-5 mg Capsule 1 cap PO QAM acetaminophen 650 mg Tablet Extended Release 1,350 mg PO UD PRN (Reason: Pain) Patient Comments: 2 at night time and then prn throught day if i need it vbwhxqu-iusjhx-xzfxgc oil 0.12-87-788 mg/g Gel 1 g topical HS Rx Instructions: ointment applied to eyes nightly sumatriptan succinate [Imitrex] 50 mg tablet 50 mg PO UD PRN (Reason: migraines) Rx Instructions: take 1 tab at onset of headache; if no relief may repeat 1 tab after at least 2 hrs; max = 4 tabs/24 hr PO duloxetine [Cymbalta] 60 mg capsule,delayed release(DR/EC) 60 mg PO HS Discontinued losartan-hydrochlorothiazide 100-25 mg tablet 0.5 tab PO QAM Discharge Orders: Discharge Order (Routine); Ordered 06/02/23 Ordered By: Clarke Gould Admission Data Admit Date/Time: 05/31/23 12:17 Attending Provider: Clarke Gould Admit Provider: Clarke Gould Primary Care Provider: Kassandra Castro. Other Providers: Manuel Henry ; Elina Blanchard
== END 2023-06-02 11:43 | disposition home or self-care (01) | DRG 454 ==
LOC: ASU 08:29 → 3E 12:17

== ENCOUNTER 2024-08-23 06:04 | Inpatient (IN) ==
--- NOTE | 2024-07-20 09:49 | PAT Medication Instructions ---
Medication Instructions Date of Service July 20, 2024 Home Medications Medication Instructions Recorded blood sugar diagnostic (OneTouch #100 ea 02/22/23 Ultra Test strips) blood-glucose meter #1 ea 02/22/23 metoprolol succinate 100 mg 100 mg PO HS #90 tabs 08/27/23 tablet,extended release 24 hr duloxetine 60 mg capsule,delayed 60 mg PO HS #90 caps 12/31/23 release (Cymbalta) levothyroxine 75 mcg tablet 75 mcg PO QAM #90 tabs 05/16/24 ondansetron 8 mg disintegrating 8 mg PO Q8H PRN nausea and 05/23/24 tablet vomiting #30 tabs rizatriptan 10 mg disintegrating See Rx Instructions PO .COMPLEX 05/23/24 tablet #10 tabs semaglutide 0.25 mg or 0.5 mg (2 0.5 mg (0.736 mL) subcut WK 90 06/12/24 mg/3 mL) subcutaneous pen injector days #72 mL (Ozempic) tizanidine 4 mg capsule (Zanaflex) 4 mg PO BID PRN muscle spasticity 07/03/24 #60 caps alirocumab 150 mg/mL subcutaneous 75 mg (0.5 mL) subcut Q14D #2 mL 07/04/24 pen injector (Praluent Pen) tramadol 50 mg tablet 50 mg PO Q6H PRN pain, moderate 07/18/24 #90 tabs ezetimibe 10 mg tablet (Zetia) 10 mg PO HS #90 tabs 07/19/24 coenzyme Q10 100 mg capsule (CoQ-10) 200 mg PO QAM cholecalciferol (vitamin D3) 125 mcg (5,000 unit) capsule 125 mcg PO QAM acetaminophen 650 mg tablet,extended release 1,350 mg PO DIRECTED PRN carboxymethylcellulose sodium 0.5 % eye drops (Refresh Tears) 1 drp ophthalmic (eye) UD PRN lutein 25 mg-zeaxanthin 5 mg capsule (Ocuvite Blue Light) 1 cap PO QAM metoprolol succinate 100 mg tablet,extended release 24 hr 100 mg PO HS duloxetine 60 mg capsule,delayed release (Cymbalta) 60 mg PO HS levothyroxine 75 mcg tablet 75 mcg PO QAM ondansetron 8 mg disintegrating tablet 8 mg PO Q8H PRN rizatriptan 10 mg disintegrating tablet See Rx Instructions PO .COMPLEX semaglutide 0.25 mg or 0.5 mg (2 mg/3 mL) subcutaneous pen injector (Ozempic) 0.5 mg (0.736 mL) subcut WK tizanidine 4 mg capsule (Zanaflex) 4 mg PO BID PRN alirocumab 150 mg/mL subcutaneous pen injector (Praluent Pen) 75 mg (0.5 mL) subcut Q14D Blueberry Extract 1 dose PO DAILY Life Extension Resveratrol 1 dose PO QAM biotin 1 mg capsule 1 mg PO QAM rdyhtovnor-tgbwfqujwteck-ckrmmsoo 50 mg-300 mg-40 mg capsule (Fioricet) 1 cap PO Q8H PRN diclofenac sodium 1 % topical gel 4 g topical QID PRN flavoring agent (bulk) 1 ea miscellaneous QAM losartan 50 mg tablet 50 mg PO QAM dybmehxxqlfd-cjdjavgp-xrmztn tablet (Multivitamin 50 Plus tablet) 1 tab PO QAM omeprazole 40 mg capsule,delayed release 40 mg PO QAM prednisone 10 mg tablet See Rx Instructions PO DAILY tramadol 50 mg tablet 50 mg PO Q6H PRN ezetimibe 10 mg tablet (Zetia) 10 mg PO HS STOP 7 days before surgery semaglutide 0.25 mg or 0.5 mg (2 mg/3 mL) subcutaneous pen injector (Ozempic) 0.5 mg (0.736 mL) subcut WK Continue as directed prednisone 10 mg tablet See Rx Instructions PO DAILY acetaminophen 650 mg tablet,extended release 1,350 mg PO DIRECTED PRN(if needed) carboxymethylcellulose sodium 0.5 % eye drops (Refresh Tears) 1 drp ophthalmic (eye) UD PRN(if needed) rizatriptan 10 mg disintegrating tablet See Rx Instructions PO .COMPLEX ASK your surgeon for instructions ikrcqtkdlp-xuarmgihgnshx-niotkoqz 50 mg-300 mg-40 mg capsule (Fioricet) 1 cap PO Q8H PRN ASK your prescriber and surgeon alirocumab 150 mg/mL subcutaneous pen injector (Praluent Pen) 75 mg (0.5 mL) subcut Q14D STOP taking 2 weeks before surgery (or as soon as possible if surgery is within 2 weeks) coenzyme Q10 100 mg capsule (CoQ-10) 200 mg PO QAM lutein 25 mg-zeaxanthin 5 mg capsule (Ocuvite Blue Light) 1 cap PO QAM Blueberry Extract 1 dose PO DAILY Life Extension Resveratrol 1 dose PO QAM biotin 1 mg capsule 1 mg PO QAM STOP taking 24 hours before surgery diclofenac sodium 1 % topical gel 4 g topical QID PRN DO NOT take the morning of surgery cholecalciferol (vitamin D3) 125 mcg (5,000 unit) capsule 125 mcg PO QAM flavoring agent (bulk) 1 ea miscellaneous QAM losartan 50 mg tablet 50 mg PO QAM lvaxdwpsvxvq-nkwcggyo-ctofvq tablet (Multivitamin 50 Plus tablet) 1 tab PO QAM Take morning of surgery With a small sip of water, OTHERWISE NOTHING TO EAT OR DRINK AFTER MIDNIGHT: levothyroxine 75 mcg tablet 75 mcg PO QAM ondansetron 8 mg disintegrating tablet 8 mg PO Q8H PRN(if needed) tizanidine 4 mg capsule (Zanaflex) 4 mg PO BID PRN(if needed) tramadol 50 mg tablet 50 mg PO Q6H PRN(if needed) omeprazole 40 mg capsule,delayed release 40 mg PO QAM Take evening before surgery metoprolol succinate 100 mg tablet,extended release 24 hr 100 mg PO HS duloxetine 60 mg capsule,delayed release (Cymbalta) 60 mg PO HS ondansetron 8 mg disintegrating tablet 8 mg PO Q8H PRN(if needed) tizanidine 4 mg capsule (Zanaflex) 4 mg PO BID PRN(if needed) tramadol 50 mg tablet 50 mg PO Q6H PRN(if needed) ezetimibe 10 mg tablet (Zetia) 10 mg PO HS Other Notes If you have any questions please call us at [phone] or [phone] or [phone] or [phone]
--- NOTE | 2024-08-01 09:38 | Anesthesiology Consultation ---
Date of Service August 01, 2024 Assessment & Plan (1) Encounter for pre-operative examination: Plan - check BSG am DOS. - urinary catheter concerns: patient states that years ago bladder perforated due to misplacement of urinary catheter. She has been told in the past that bladder has migrated down and this complicates placement as well. She reports having catheter with previous surgery and experienced severe bladder spasms until catheter was removed. She was advised I can document this in her chart but that determination on urinary catheter placement is to surgeon's office. She plans to contact surgeon's office and further discuss this. I also sent a message to the surgeon's office regarding these concerns. - semaglutide instructions: Patient informed at PAT visit to stop 7 days prior to surgery-voiced understanding. - chlorhexidine allergy: no wipes provided at PAT visit. - patient requesting Dr. Morales as anesthesiologist. Request forwarded to OR and anesthesia team, patient advised this will be arranged if possible. Chart Review Chart Review: Acceptable Risk for Surgery and Patient seen in Pre Admission Testing Teaching & Discussion Pre-Anesthesia Teaching/Discussion Notes: Instructed NPO after midnight before surgery, except medications with 15 cc of water. Medication instructions provided according to the PAT guidelines. History Surgery Operation Date: 08/23/24 11:45 Proposed Procedures p Right Sacroiliac Joint Infusion - Clarke Gould DO Height/Weight Height: 5 ft 2 in Weight: 67.6 kg Allergies Allergy/AdvReac Type Severity Reaction Status Date / Time Iodinated Contrast Media Allergy Severe headache, Verified 07/18/24 13:09 n/v, hives, rash iodine Allergy Severe headache, Verified 07/18/24 13:09 n/v, hives, rash causing hospitalization Penicillins Allergy Severe anaphylaxis Verified 07/18/24 13:09 Sulfa (Sulfonamide Allergy Severe ITCHING OF Verified 07/18/24 13:09 Antibiotics) THROAT codeine Allergy Intermediate n/v, Verified 07/18/24 13:09 headache doxycycline Allergy Intermediate NAUSEA, Verified 07/18/24 13:09 vomiting Egg Derived Allergy Intermediate NAUSEA Verified 07/18/24 13:09 latex Allergy Intermediate ITCHING Verified 07/18/24 13:09 ERYTHEMA morphine Allergy Intermediate n/v,headach Verified 07/18/24 13:09 e soap Allergy Intermediate ITCHING Verified 07/18/24 13:09 "DIAL SOAP" chlorhexidine Allergy Unknown ITCHING, Verified 07/18/24 13:09 TINGLING propoxyphene Allergy Unknown pt not Verified 07/18/24 13:09 sure reaction/remote hx 1970's soy Allergy Unknown INDIGESTION Verified 07/18/24 13:09 aspirin AdvReac Severe 'hypersensitivity' Verified 07/18/24 13:09 per pt BURNING OF STOMACH carbamazepine AdvReac Severe confusion, Verified 07/18/24 13:09 blurred vision fluoxetine AdvReac Severe strong Verified 07/18/24 13:09 aggression gabapentin AdvReac Severe falling Verified 07/18/24 13:09 NSAIDS (Non-Steroidal AdvReac Severe gatritis, Verified 07/18/24 13:09 Anti-Inflamma epistaxis pregabalin AdvReac Severe falling Verified 07/18/24 13:09 Pghhoaj-XEQ-WcR Reductase AdvReac Severe muscle Verified 07/18/24 13:13 Inhibitor pain, unable to walk thiopental AdvReac Severe n/v Verified 07/18/24 13:09 (severe), headache fentanyl AdvReac Intermediate NAUSEA Verified 07/18/24 13:09 FROM PATCH chlorpromazine AdvReac Unknown pt unsure, Verified 07/18/24 13:09 states should not be administered ibuprofen AdvReac Unknown STOMACH Verified 07/18/24 13:09 BURNING ketorolac AdvReac Unknown BLEEDING Verified 07/18/24 13:09 baclofen Allergy Intermediate Nausea Uncoded 07/18/24 13:09 oxycodone AdvReac Mild Nausea Uncoded 07/18/24 13:09 Medications Home Medications Medication Instructions Recorded Confirmed Last Taken coenzyme Q10 100 mg capsule 200 mg PO QAM 03/23/22 08/01/24 06/18/23 (CoQ-10) cholecalciferol (vitamin D3) 125 125 mcg PO QAM 06/30/22 08/01/24 06/18/23 mcg (5,000 unit) capsule blood sugar diagnostic (OneTouch #100 ea 02/22/23 08/01/24 Unknown Ultra Test strips) blood-glucose meter #1 ea 02/22/23 08/01/24 Unknown acetaminophen 650 mg 1,350 mg PO DIRECTED PRN Pain 04/16/23 08/01/24 05/27/23 tablet,extended release carboxymethylcellulose sodium 0.5 1 drp ophthalmic (eye) UD PRN 04/16/23 08/01/24 05/31/23 06:00 % eye drops (Refresh Tears) refresh tears lutein 25 mg-zeaxanthin 5 mg 1 cap PO QAM 04/16/23 08/01/24 06/18/23 capsule (Ocuvite Blue Light) metoprolol succinate 100 mg 100 mg PO HS #90 tabs 08/27/23 08/01/24 Unknown tablet,extended release 24 hr duloxetine 60 mg capsule,delayed 60 mg PO HS #90 caps 12/31/23 08/01/24 Unknown release (Cymbalta) levothyroxine 75 mcg tablet 75 mcg PO QAM #90 tabs 05/16/24 08/01/24 Unknown ondansetron 8 mg disintegrating 8 mg PO Q8H PRN nausea and 05/23/24 08/01/24 Unknown tablet vomiting #30 tabs rizatriptan 10 mg disintegrating See Rx Instructions PO .COMPLEX 05/23/24 08/01/24 Unknown tablet #10 tabs semaglutide 0.25 mg or 0.5 mg (2 0.5 mg (0.736 mL) subcut WK 90 06/12/24 08/01/24 07/14/24 mg/3 mL) subcutaneous pen injector days #72 mL (Ozempic) alirocumab 150 mg/mL subcutaneous 75 mg (0.5 mL) subcut Q14D #2 mL 07/04/24 08/01/24 Unknown pen injector (Praluent Pen) Blueberry Extract 1 dose PO DAILY 07/18/24 08/01/24 Unknown Life Extension Resveratrol 1 dose PO QAM 07/18/24 08/01/24 Unknown biotin 1 mg capsule 1 mg PO QAM 07/18/24 08/01/24 Unknown diclofenac sodium 1 % topical gel 4 g topical QID PRN Pain 07/18/24 08/01/24 Unknown flavoring agent (bulk) 1 ea miscellaneous QAM 07/18/24 08/01/24 Unknown losartan 50 mg tablet 50 mg PO QAM 07/18/24 08/01/24 Unknown pqrjuutfycxo-wtqnsoyx-ddssvr 1 tab PO QAM 07/18/24 08/01/24 Unknown tablet (Multivitamin 50 Plus tablet) omeprazole 40 mg capsule,delayed 40 mg PO QAM 07/18/24 08/01/24 Unknown release tramadol 50 mg tablet 50 mg PO Q6H PRN pain, moderate 07/18/24 08/01/24 Unknown #90 tabs ezetimibe 10 mg tablet (Zetia) 10 mg PO HS #90 tabs 07/19/24 08/01/24 Unknown qpbduqgnkv-zurqyjqfvailh-jvpuilyr 1 cap PO Q8H PRN headaches #10 caps 07/31/24 08/01/24 Unknown 50 mg-300 mg-40 mg capsule (Fioricet) tizanidine 4 mg capsule (Zanaflex) 4 mg PO BID PRN muscle spasticity 07/31/24 08/01/24 Unknown #60 caps Past Medical History Medical History (Updated 08/02/24 @ 09:58 by Brii Mckoy PA-C) Anxiety and depression Chronic sinusitis Diabetes mellitus, type 2 NIDDM Fibromyalgia GERD (gastroesophageal reflux disease) controlled, stable per pt History of diverticulitis many yrs ago History of gastric ulcer in childhood Hx of supraventricular tachycardia controlled with metoprolol. 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 She has been told in the past that bladder has migrated down and this complicates placement as well. She reports having catheter with subsequent surgery and experienced severe bladder spasms until catheter was removed. Patient denies h/o stroke, seizures, heart attack, heart failure, blood clots/DVTs or blood transfusions. Exercise / Class Metabolic Activity II 4-5 Yardwork/Stairs/Walk up hill (denies chest discomfort or shortness of breath with one flight of stairs) Past Family History Family History Uncle Family history of esophageal cancer Mother Lung cancer Smoker Coronary heart disease Hypothyroidism Stroke Heart disease Father Myocardial infarction, Onset Age: 59 Coronary heart disease S/P CABG x 4 Diabetes Heart disease Brother Family history of reaction to anesthesia Coronary heart disease Hx of CABG Diabetes Hypertension Brother Coronary heart disease Aunt Breast cancer Other No family history of bleeding disorder Past Surgical History Surgical History H/O decompression of ulnar nerve right H/O tubal ligation History of abdominoplasty History of bladder surgery bladder repair surgery History of cardiac cath blacked out...cath...~2006 [place] [facility] [place](s) etiology for blacking out : bradycardia - no further info. History of carpal tunnel release RT/LEFT History of cataract surgery RT/LEFT History of section History of cholecystectomy History of colonoscopy most recent 07/19/2020 [place] History of dilatation and curettage History of esophagogastroduodenoscopy (EGD) History of laminectomy (2018) L3-L4 05/22/1919 Grade 1 view with glidescope #3, ETT 7. History of lumbar fusion (05/2023) L4-L5 Decompression and Fusion History of lumbar spinal fusion (2018) L3-L4 07/07/19 elective glidescope, ETT 7. History of tonsillectomy and adenoidectomy History of tooth extraction History of total hysterectomy with bilateral salpingo-oophorectomy (BSO) History of total knee replacement RT/LEFT 04/22/16 SAB L3-L4 1 attempt + PNB. Pt notes extended hospitalization for pain control with L TKA Nausea and vomiting after administration of anesthetic agent denies needing scop patch Past Anesthesia History No Hx of Anesthesia Complications and Other (decreased brother slow to wake, improved with newer anesthetic agents) History of PONV No Hx of Motion Sickness and History of PONV (with older anesthetics) Social History Smoking Status: Never smoker Do You Dip or Chew Tobacco: No Hx Alcohol Use: Yes alcohol intake frequency: holidays/special occasions only Hx Substance Use: No substance use type: does not use Review of Systems Snoring, denies witnessed apneas. Patient denies chest pain, shortness of breath, dyspnea on exertion, fever, chills, cough, wheezing, or palpitations. Physical Exam Vital Signs Vitals BP 122/78 P 79 TEMP 98.0 SP02 98% on RA RESP 18 Physical Patient resting comfortably in chair in no acute distress, alert and oriented, responding appropriately throughout visit Full cervical extension range of motion without pain TMD 3.5 finger breadths Mallampati Score 2 Dentition: one crown, denies chipped or loose teeth, caps, implants or bridges Lungs: normal respiratory effort. Good air movement, clear throughout to auscultation, no adventitious breath sounds Cardiac: regular rate and rhythm, no murmurs noted Carotid arteries: negative bruit bilat Lab Results Anesthesia Preop Results Results Anesthesia Widget: WBC 7.78 K/ul (4.8-10.8) 08/01/24 Hgb 12.7 g/dl (12.0-16.0) 08/01/24 Hct 39.0 % (37.0-47.0) 08/01/24 Plt 286 K/uL (130-400) 08/01/24 Na 139 mmol/L (136-145) 08/01/24 K 4.0 mmol/L (3.5-5.1) 08/01/24 Cl 104 mmol/L (98-107) 08/01/24 CO2 29 mmol/L (21-32) 08/01/24 BUN 23 mg/dl (6-23) 08/01/24 Creat 0.78 mg/dl (0.6-1.2) 08/01/24 Glucose Level 65 mg/dl (70-99(Fasting)) L 08/01/24 PT 9.7 Seconds (9.0-12.0) 08/01/24 PTT 24 Seconds (21-31) 08/01/24 INR 0.9 (0.9-1.1) 08/01/24 HA1c 6.1 % (4.5-5.6) H 08/01/24 Urine Color Yellow 08/01/24 Urine Appearance Clear (Clear) 08/01/24 Urine pH 5.0 (4.5-7.5) 08/01/24 Urine Specific [place] 1.035 (1.000-1.030) H 08/01/24 Urine Protein Negative (Negative) 08/01/24 Urine Glucose (UA) Negative (Negative) 08/01/24 Urine Ketones Negative (Negative) 08/01/24 Urine Blood Negative (Negative) 08/01/24 Urine Nitrite Negative (Negative) 08/01/24 Urine Bilirubin Negative (Negative) 08/01/24 Urine Urobilinogen Negative (Negative) 08/01/24 Urine Leukocyte Esterase Negative (Negative) 08/01/24 SARS-CoV-2, RNA, NAAT Negative 08/01/24 Blood Type A Positive 08/01/24 Antibody Screen NEGATIVE 08/01/24 Testing Electrocardiogram Date: 08/01/24 NSR, rate 72 bpm Chest X-Ray Date: 08/01/24 No active disease in the chest. Cervical Spine Date: 02/17/24 1. No fractures within the cervical spine. 2. Degenerative changes as described above. This is similar to the prior MRI.
[2024-08-23] MEDS: LR 15ML/HR IV SCH (06:52)
[2024-08-23] MEDS: ACETAMINOPHEN 500 MG TAB PO SCH (06:57)
[2024-08-23] MEDS: GABAPENTIN 300 MG CAP PO SCH (06:59)
[2024-08-23] MEDS: LR 60ML/HR IV SCH (07:04)
[2024-08-23] MEDS ORDERED: ROCURONIUM BROMIDE 10 MG/ML 5 ML VIAL IV ONE (07:35)
[2024-08-23] MEDS ORDERED: LIDOCAINE 2% 2 ML VIAL/AMP(20MG/ML) INFIL ONE (07:35)
[2024-08-23] MEDS ORDERED: PROPOFOL IV EMULSION 10 MG/ML 20 ML VIAL IV ONE (07:35)
[2024-08-23] MEDS ORDERED: fentaNYL citrate PF 100 MCG/2 ML VIAL ONE (07:36)
[2024-08-23] MEDS ORDERED: MIDAZOLAM HCL 1 MG/ML 2ML VIAL ONE (07:36)
--- NOTE | 2024-08-23 07:36 | History & Physical Bridge Note ---
Date of Service August 23, 2024 History & Physical Bridge Note I have examined the patient, reviewed the History & Physical and in the interval since the performance of the History & Physical I have noted the following changes of clinical significance: no changes noted
--- NOTE | 2024-08-23 07:39 | History & Physical Report ---
Date of Service August 23, 2024 Assessment & Plan (1) Sacroiliitis: Plan: Right sacroiliac joint fusion History of Present Illness Chief Complaint: Sacroiliitis Primary Care Provider: Kassandra Castro DO This is a 73-year-old female presents with chronic persistent sacroiliitis. After failing course of nonoperative care is here for surgical invention. Allergies Allergy/AdvReac Type Severity Reaction Status Date / Time Iodinated Contrast Media Allergy Severe headache, Verified 08/23/24 06:23 n/v, hives, rash iodine Allergy Severe headache, Verified 08/23/24 06:23 n/v, hives, rash causing hospitalization Penicillins Allergy Severe anaphylaxis Verified 08/23/24 06:23 Sulfa (Sulfonamide Allergy Severe ITCHING OF Verified 08/23/24 06:23 Antibiotics) THROAT codeine Allergy Intermediate n/v, Verified 08/23/24 06:23 headache doxycycline Allergy Intermediate NAUSEA, Verified 08/23/24 06:23 vomiting Egg Derived Allergy Intermediate NAUSEA Verified 08/23/24 06:23 latex Allergy Intermediate ITCHING Verified 08/23/24 06:23 ERYTHEMA morphine Allergy Intermediate n/v,headach Verified 08/23/24 06:23 e soap Allergy Intermediate ITCHING Verified 08/23/24 06:23 "DIAL SOAP" chlorhexidine Allergy Unknown ITCHING, Verified 08/23/24 06:23 TINGLING propoxyphene Allergy Unknown pt not Verified 08/23/24 06:23 sure reaction/remote hx 1970's soy Allergy Unknown INDIGESTION Verified 08/23/24 06:23 aspirin AdvReac Severe 'hypersensitivity' Verified 08/23/24 06:23 per pt BURNING OF STOMACH carbamazepine AdvReac Severe confusion, Verified 08/23/24 06:23 blurred vision fluoxetine AdvReac Severe strong Verified 08/23/24 06:23 aggression gabapentin AdvReac Severe falling Verified 08/23/24 06:23 NSAIDS (Non-Steroidal AdvReac Severe gatritis, Verified 08/23/24 06:23 Anti-Inflamma epistaxis pregabalin AdvReac Severe falling Verified 08/23/24 06:23 Rbklfpa-IHK-KyY Reductase AdvReac Severe muscle Verified 08/23/24 06:23 Inhibitor pain, unable to walk thiopental AdvReac Severe n/v Verified 11/06/24 06:23 (severe), headache fentanyl AdvReac Intermediate NAUSEA Verified 08/23/24 06:23 FROM PATCH chlorpromazine AdvReac Unknown pt unsure, Verified 08/23/24 06:23 states should not be administered ibuprofen AdvReac Unknown STOMACH Verified 08/23/24 06:23 BURNING ketorolac AdvReac Unknown BLEEDING Verified 08/23/24 06:23 baclofen Allergy Intermediate Nausea Uncoded 08/23/24 06:23 oxycodone AdvReac Mild Nausea Uncoded 08/23/24 06:23 Home Medications Medication Instructions Recorded Confirmed Type coenzyme Q10 100 mg capsule 200 mg PO QAM 03/23/22 08/08/24 History (CoQ-10) cholecalciferol (vitamin D3) 125 125 mcg PO QAM 06/30/22 08/23/24 History mcg (5,000 unit) capsule blood sugar diagnostic (OneTouch #100 ea 02/22/23 08/08/24 Rx Ultra Test strips) blood-glucose meter #1 ea 02/22/23 08/08/24 Rx acetaminophen 650 mg 1,350 mg PO DIRECTED PRN Pain 04/16/23 08/23/24 History tablet,extended release carboxymethylcellulose sodium 0.5 1 drp ophthalmic (eye) UD PRN 04/16/23 08/23/24 History % eye drops (Refresh Tears) refresh tears lutein 25 mg-zeaxanthin 5 mg 1 cap PO QAM 04/16/23 08/23/24 History capsule (Ocuvite Blue Light) duloxetine 60 mg capsule,delayed 60 mg PO HS #90 caps 12/31/23 08/08/24 Rx release (Cymbalta) levothyroxine 75 mcg tablet 75 mcg PO QAM #90 tabs 05/16/24 08/23/24 Rx ondansetron 8 mg disintegrating 8 mg PO Q8H PRN nausea and 05/23/24 08/23/24 Rx tablet vomiting #30 tabs rizatriptan 10 mg disintegrating See Rx Instructions PO .COMPLEX 05/23/24 08/08/24 Rx tablet #10 tabs semaglutide 0.25 mg or 0.5 mg (2 0.5 mg (0.736 mL) subcut WK 90 06/12/24 08/08/24 Rx mg/3 mL) subcutaneous pen injector days #72 mL (Ozempic) Blueberry Extract 1 dose PO DAILY 07/18/24 08/23/24 History Life Extension Resveratrol 1 dose PO QAM 07/18/24 08/23/24 History biotin 1 mg capsule 1 mg PO QAM 07/18/24 08/23/24 History diclofenac sodium 1 % topical gel 4 g topical QID PRN Pain 07/18/24 08/08/24 History flavoring agent (bulk) 1 ea miscellaneous QAM 07/18/24 08/23/24 History losartan 50 mg tablet 50 mg PO QAM 07/18/24 08/23/24 History mpeyoblhkrrf-ikprhcwg-qyiynx 1 tab PO QAM 07/18/24 08/23/24 History tablet (Multivitamin 50 Plus tablet) tramadol 50 mg tablet 50 mg PO Q6H PRN pain, moderate 07/18/24 08/23/24 Rx #90 tabs ezetimibe 10 mg tablet (Zetia) 10 mg PO HS #90 tabs 07/19/24 08/23/24 Rx lcogvqluio-wtmowsdhyjacm-xfelphnd 1 cap PO Q8H PRN headaches #10 caps 07/31/24 08/23/24 Rx 50 mg-300 mg-40 mg capsule (Fioricet) ammonium lactate 12 % topical cream 1 applic topical DAILY PRN dry 08/08/24 08/23/24 Rx skin #140 grams hydrocodone 5 mg-acetaminophen 325 1 tab PO Q6H PRN pain #30 tabs 08/08/24 08/23/24 Rx mg tablet methocarbamol 500 mg tablet 500 mg PO Q8H PRN back spasm #30 08/08/24 08/23/24 Rx tabs metoprolol succinate 100 mg 100 mg PO HS #90 tabs 08/08/24 08/23/24 Rx tablet,extended release 24 hr omeprazole 40 mg capsule,delayed 40 mg PO QAM #90 caps 08/14/24 08/23/24 Rx release alirocumab 150 mg/mL subcutaneous 75 mg (0.5 mL) subcut Q14D #2 mL 08/15/24 08/23/24 Rx pen injector (Praluent Pen) sexejby-xvnarf-jfvgip oil 0.12 See Rx Instructions .Route .COMPLEX 08/23/24 08/23/24 History mg-87 mg-788 mg/g topical gel Past Med/Surg History Problem List Sacroiliac joint pain Osteopenia Mitral valve prolapse Lumbar disc disease Legally blind vestibular macular dystrophy Fibromyalgia Chronic sinusitis Anxiety and depression Neurogenic claudication due to lumbar spinal stenosis Statin myopathy (Acute) Migraines Diabetes mellitus, type 2 NIDDM Arthritis, lumbar spine Chronic rhinitis Spondylolisthesis, cervical region limited rom History of paroxysmal supraventricular tachycardia Hypothyroidism Osteoarthritis Vitamin D deficiency Iron deficiency anemia (Chronic) Anemia GERD (gastroesophageal reflux disease) (Chronic) Hyperlipidemia (Chronic) HTN (hypertension) (Chronic) controlled, stable per pt Medical History Nasal septal erosion Postnasal drip Lumbar back pain Lumbar disc herniation with radiculopathy Urinary catheter complication patient states that years ago bladder perforated due to misplacement of urinary catheter. She has been told in the past that bladder has migrated down and this complicates placement as well. She reports having catheter with subsequent surgery and experienced severe bladder spasms until catheter was removed. Post-nasal drip chronic Spondylolisthesis cervical - limited ROM Hx of supraventricular tachycardia controlled with metoprolol. 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 History of total hysterectomy with bilateral salpingo-oophorectomy (BSO) History of laminectomy (2018) L3-L4 05/22/1919 Grade 1 view with glidescope #3, ETT 7. H/O tubal ligation Nausea and vomiting after administration of anesthetic agent denies needing scop patch History of dilatation and curettage History of carpal tunnel release RT/LEFT History of total knee replacement RT/LEFT 04/22/16 SAB L3-L4 1 attempt + PNB. Pt notes extended hospitalization for pain control with L TKA History of esophagogastroduodenoscopy (EGD) History of colonoscopy most recent 07/19/2020 [place] History of section History of abdominoplasty History of bladder surgery bladder repair surgery History of cholecystectomy History of tooth extraction History of tonsillectomy and adenoidectomy History of cataract surgery RT/LEFT History of cardiac cath blacked out...cath...~2006 AT [facility] – [place]...no stent(s) etiology for blacking out : bradycardia - no further info. Family History Uncle Family history of esophageal cancer Mother Lung cancer Smoker Coronary heart disease Hypothyroidism Stroke Heart disease Father Myocardial infarction, Onset Age: 59 Coronary heart disease S/P CABG x 4 Diabetes Heart disease Brother Family history of reaction to anesthesia Coronary heart disease Hx of CABG Diabetes Hypertension Brother Coronary heart disease Aunt Breast cancer Other No family history of bleeding disorder Social History Smoking Status: Never smoker Second Hand Exposure: No; Do You Dip or Chew Tobacco: No; Tobacco Cessation Education Requested by Patient: No Hx Alcohol Use: Yes Hx Substance Use: No Preferred Language: Citizen [place] Communication Ability: Effective Communication Ability Comment: legally blind Visual Impairment: Blindness Hearing Ability: Normal Ready Mix Truck Driver Required: No Beliefs That Will Affect Care: None marital status: Current Living Situation: Alone current occupational status: retired and disabled 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 How many Children do You have: 2 How many Children do You have Comment: twin daughters Other Information That Helps Us Care for You: No Feels Safe at Home: Yes Safety Concerns: Feels Safe At This Time Diet: low carbohydrate and low salt caffeine: Yes during the past year weight has: decreased > 10 lbs Dental Care, Regularly: No Physical Activity Frequency: Other Physical Activity Frequency Comment: limited d/t pain Seatbelt Use: always Sunscreen Use: No Assistive Devices: Glasses and Other Assistive Devices Comment: blind stick or cane PRN Physical Exam Physical Exam: Patient is alert and oriented Heart regular in rhythm lungs clear Results & Data Results & Data Vital Signs (Past 12 Hours) Vital Signs Temp Pulse Resp BP Pulse Ox O2 Del Method 08/23/24 06:37 36.8 C 84 18 176/82 H 98 Room Air
[2024-08-23] MEDS: CLINDAMYCIN/D5W 900 MG/50 ML BAG IV SCH (07:50)
[2024-08-23] MEDS: FLOSEAL HEMOSTATIC MATRIX 10ML TOP ONE (08:30)
[2024-08-23] MEDS: ceFAZolin 330 MG/ML 1 GM VIAL ONE (08:30)
[2024-08-23] MEDS: BUPIVACAINE/EPINEPHRINE 0.25% 1:200,000 30 ML VIAL ONE (08:30)
[2024-08-23] MEDS ORDERED: SUGAMMADEX SODIUM 200 MG/2 ML VIAL IV ONE (08:30)
[2024-08-23] MEDS ORDERED: PHENYLEPHRINE 100MCG/ML 5ML SYR ONE (08:31)
[2024-08-23] MEDS ORDERED: ONDANSETRON INJ 2 MG/ML 2 ML VIAL ONE (08:31)
[2024-08-23] MEDS ORDERED: DEXAMETHASONE SOD INJ 4 MG/ML VIAL ONE (08:31)
--- NOTE | 2024-08-23 08:36 | Operative Report ---
Post Operative Report Pre & Post Diagnosis Operation Date: 08/23/24 07:45 Pre-Op Diagnosis: Sacroiliitis Postop diagnosis: Same I identified the patient and participated in the time-out.: Yes Procedure Operation Date: 08/23/24 07:45 Actual Procedures #1 open right sacroiliac joint fusion. #2 placement of Nevro one 9 mm implant filled with Oxyzyme bone graft into the right SI joint interdigitating the ileum to the sacrum. Surgeon Clarke Gould, DO Worship Director None Estimated Blood Loss 10 Findings Consistent with Post-Op Diagnosis Specimens None Indications This is a 73-year-old female who presents with the above-mentioned diagnosis of failing course of nonoperative care she is here for surgical invention. Description of Procedure Patient was met with identified informed consent obtained. Patient was then taken to the operative suite underwent ablation placed in a prone position on the Corky table chest padded bolsters. All bony promises well-padded eyes inspected to ensure no external pressure placed upon them. This point the right upper buttock was prepped and draped in normal sterile fashion. With the assistance of fluoroscopy in AP oblique and lateral planes identified the posterior aspect the right SI joint. Approximately 3 cm incision was placed directly over the right SI joint. I approached the posterior aspect of the joint and placed a joint finder directly into the joint verifying position with fluoroscopy. I then placed a joint dilator over the joint finder followed by a working cannula. I then drilled and curetted out the right SI joint to subcortical bleeding bone. This was followed by placement of a 9 mm Nevro 1 implant into the interdigitating ileum to the sacrum. Incision was then copiously irrigated and subsequently closed with subcutaneous Vicryl and 4 Monocryl for fascial closure. Steri-Strips sterile dressing placed. Patient waken taken to PACU stable condition. Im ordering 20 grams of Triple Conne[place] Collagen Powder ([employer] [id number]) to treat an incision wound that was caused by a spine procedure. The incision is approximately 2 cm(W) x 4 cm(L) into the joint (D) in size and is a full thickness wound. Triple Conne[place] collagen comes in 1 gram packets so 20 packets were ordered. Given the size of the wound, with light to moderate exudate I chose to order a 20 day supply. The patient will be provided instructions for proper application of the collagen wound kit. The patient will be asked to apply the collagen powder daily and then cover it with sterile dressings dispensed. Collagen was selected as I expect the collagen to attract monocytes and fibroblasts, act as a sacrificial substrate for MMPs, and ultimately proved a matrix for tissue and vessel growth. The collagen will act as a primary dressing in this scenario. It is medically necessary for proper healing of these wounds to improve bioavailability and contact with each wound surface, this is also to help prevent infection of wounds and promote healing ultimately leading to a better healing outcome and limit the risk of infection. I attest to the content of the Intraoperative Record and any orders documented therein. Any exceptions are noted below.
[2024-08-23] MEDS ORDERED: traMADol HCL 50 MG TABLET PO PRN (08:43)
[2024-08-23] MEDS ORDERED: ACETAMINOPHEN 500 MG TAB PO PRN (08:43)
[2024-08-23] MEDS ORDERED: PHARMACY GLYCEMIC MGMT CONSULT PRN (08:43)
[2024-08-23] MEDS ORDERED: METHOCARBAMOL 500 MG TABLET PO PRN (08:43)
[2024-08-23] MEDS ORDERED: KETOROLAC TROMETHAMINE 15 MG/ML VIAL IV PRN (08:43)
[2024-08-23] MEDS ORDERED: ONDANSETRON INJ 2 MG/ML 2 ML VIAL IV PRN ×2 (08:43→08:51)
[2024-08-23] MEDS ORDERED: ACETAMINOPHEN 1,000 MG/100 ML VIAL IV PRN (08:43)
[2024-08-23] MEDS ORDERED: PROMETHAZINE 12.5 MG/50.5 ML BAG IV PRN (08:43)
[2024-08-23] MEDS ORDERED: ONDANSETRON 4 MG OD TAB PO PRN ×2 (08:43→09:06)
[2024-08-23] MEDS ORDERED: NALOXONE HCL 0.4 MG/1 ML VIAL/CARP IV PRN (08:43)
[2024-08-23] MEDS ORDERED: METOCLOPRAMIDE HCL INJ 5 MG/ML 2 ML VIAL IV PRN (08:43)
[2024-08-23] MEDS ORDERED: TRYPSIN SCH (08:45)
[2024-08-23] MEDS ORDERED: BALSAM PERU SCH (08:45)
[2024-08-23] MEDS ORDERED: CASTOR OIL SCH (08:45)
[2024-08-23] MEDS ORDERED: NON-FORMULARY MEDICATION (Semaglutide [Ozempic] 0.25 mg or 0.5 mg (2 mg/3 mL) pen injector SQ SCH (08:45)
[2024-08-23] MEDS: fentaNYL citrate PF 100 MCG/2 ML VIAL IV PRN (08:50)
[2024-08-23] MEDS ORDERED: ePHEDrine sulfate 50 MG/ML AMP IV PRN (08:51)
[2024-08-23] MEDS ORDERED: ATROPINE SULFATE 0.1 MG/ML 10ML SYR IV PRN (08:51)
[2024-08-23] MEDS ORDERED: HYDROmorphone INJ 1 MG/ML SYRINGE IV PRN (08:51)
[2024-08-23] MEDS ORDERED: NON-FORMULARY MEDICATION (Multivitamin-Minerals-Lutein [Multivitamin 50 Plus] Tablet) PO SCH (09:00)
[2024-08-23] MEDS ORDERED: RESVERATROL PO SCH (09:00)
[2024-08-23] MEDS ORDERED: [UNRECOGNIZED DRUG - OTHER] MS SCH (09:00)
[2024-08-23] MEDS ORDERED: [UNRECOGNIZED DRUG - OTHER] PO SCH (09:00)
[2024-08-23] MEDS ORDERED: NON-FORMULARY MEDICATION (Coenzyme Q10 [Coq-10] 100 mg capsule) PO SCH (09:00)
[2024-08-23] MEDS ORDERED: OIL MS SCH (09:00)
[2024-08-23] MEDS ORDERED: [UNRECOGNIZED DRUG - OTHER] PO SCH (09:00)
[2024-08-23] MEDS ORDERED: BUTALBITAL/ACETAMIN/CAFFEINE TAB PO PRN (09:03)
[2024-08-23] MEDS ORDERED: DEXTROSE 50% 50 ML SYRINGE IV PRN (09:45)
[2024-08-23] MEDS ORDERED: GLUCOSE 10 TAB/TUBE PO PRN (09:45)
[2024-08-23] MEDS ORDERED: GLUCOSE 40% GEL 15 GM TUBE PO PRN (09:45)
[2024-08-23] MEDS ORDERED: GLUCAGON FOR INJ 1 MG VIAL SQ PRN (09:45)
[2024-08-23] MEDS ORDERED: CARBOHYDRATES FOR HYPOGLYCEMIA PO PRN (09:45)
[2024-08-23] MEDS ORDERED: AMMONIUM LACTATE 12% LOTION 225 GM BTL EXT PRN (10:03)
[2024-08-23] MEDS ORDERED: RIZATRIPTAN BENZOATE MLT 10 MG TAB PO PRN (10:08)
[2024-08-23] MEDS: fentaNYL citrate PF 100 MCG/2 ML VIAL ONE ×2 (10:15→10:19)
[2024-08-23] MEDS: HYDROCODONE/ACETAMOPHEN 5/325MG TAB PO PRN (10:16)
[2024-08-23 10:46] VITALS: O2SAT 96
--- NOTE | 2024-08-23 11:08 | Anesthesiology Progress Note ---
Date of Service August 23, 2024 Anesthesia Post Procedure Vital Signs Vital Signs: Temp Pulse Pulse Resp BP BP Pulse Ox 08/23/24 10:46 36.7 C 85 18 133/72 96 08/23/24 10:21 36.5 C 76 18 144/78 H 92 08/23/24 09:46 36.6 C 79 18 129/76 93 08/23/24 09:35 36.4 C L 79 18 130/77 94 08/23/24 09:25 36.4 C L 74 13 137/73 94 08/23/24 09:15 80 12 146/80 H 98 08/23/24 09:05 78 12 150/76 H 99 08/23/24 08:55 76 17 148/87 H 100 08/23/24 08:47 36 C L 80 16 154/90 H 99 08/23/24 06:37 36.8 C 84 18 176/82 H 98 O2 Del Method O2 Flow Rate 08/23/24 10:46 Room Air 08/23/24 10:21 Room Air 08/23/24 09:46 Room Air 08/23/24 09:35 Room Air 08/23/24 09:25 Oxymask 2 08/23/24 09:15 Oxymask 2 08/23/24 09:05 Oxymask 4 08/23/24 08:55 Oxymask 4 08/23/24 08:47 Oxymask 6 08/23/24 06:37 Room Air Pain Intensity Right Buttock: Pain Intensity: 8 Transfer of Care Handoff Completed per policy Notes Mental Status: alert / awake / arousable Patient Amnestic to Procedure: Yes Nausea / Vomiting: adequately controlled Pain: adequately controlled Airway Patency, RR, SpO2: stable & adequate BP & HR: stable & adequate Hydration State: stable & adequate Anesthetic Complications: no major complications apparent
[2024-08-23] MEDS: LOSARTAN POTASSIUM 50 MG TAB PO SCH (11:26)
[2024-08-23] MEDS: ARTIFICIAL TEARS OP SCH (11:27)
[2024-08-23] MEDS: INSULIN ASPART PER UNIT CHARGE SC SCH (12:18)
[2024-08-23 12:22] VITALS: BP 136/80; PULSE 83; RESP 20; TEMP 98.1
[2024-08-23] MEDS ORDERED: DULoxetine HCL 60 MG CAP PO SCH (21:00)
[2024-08-23] MEDS ORDERED: EZETIMIBE 10 MG TAB PO SCH (21:00)
[2024-08-23] MEDS ORDERED: METOPROLOL SUCC 50MG EXT REL TAB PO SCH (21:00)
[2024-08-24] MEDS ORDERED: LEVOTHYROXINE SODIUM 75 MCG TABLET PO SCH (06:30)
--- NOTE | 2024-08-24 06:59 | Fluoroscopy Report ---
FL sacrum CLINICAL HISTORY: RT SI JOINT FUSION COMPARISON STUDY: None FLUOROSCOPY TIME: 36 seconds FLUOROSCOPY IMAGES: T2 EXPOSURE DOSE: 28.3 mGy FINDINGS: Partially imaged lumbar spinal fusion hardware. Status post fusion of the left SI joint wit h placement of a metallic density structure. No acute fracture or malalignment identified. IMPRESSION: Fluoroscopic assistance as above. ACT 112: Negative or not required by law. Electronically signed by: Mario Vargas M.D. 08/24/2024 6:57 AM
[2024-08-24] MEDS ORDERED: PANTOprazole 40 MG TAB PO SCH (09:00)
[2024-08-24] MEDS ORDERED: CHOLECALCIFEROL 125 MCG (5,000 UNITS) TAB PO SCH (09:00)
[2024-08-24] MEDS ORDERED: CEROVITE ADV FORMULA TAB PO SCH (09:00)
== END 2024-08-23 14:25 | disposition home or self-care (01) | DRG 451 ==
LOC: ASU 06:04 → 3E 08:39